=== PATIENT | male | born 1975 | race Two or more races ===

== ENCOUNTER 2023-06-02 10:18 | Outpatient (REF) | payer MEDICAID, SELFPAY ==
[2023-06-02 11:16] LABS: MANUAL DIFF FLAG NO
[2023-06-02 11:27] LABS: Basophils Absolute Auto 0.1 X10*3/uL (0.0-0.2); Basophils Percent Auto 0.9 % (0-2); Eosinophils Absolute Auto 0.1 X10*3/uL (0.0-0.4); Eosinophils Percent Auto 1.4 % (0-4); Hematocrit 42.2 % (42.0-52.0); Hemoglobin 14.5 g/dl (14.0-18.0); Imm Gran Abs Auto 0.03 X10*3/uL (0.00-0.03); Imm Gran Pct Auto 0.4 % (0.0-0.4); Lymphocytes Absolute Auto 2.8 X10*3/uL (1.2-4.9); Lymphocytes Percent Auto 35.2 % (20-40); Mean Corpuscular HGB Conc 34.4 g/dl (31.0-36.0); Mean Corpuscular Hemoglobin 30.2 pg (27.0-33.0); Mean Corpuscular Volume 87.9 fL (80.0-98.0); Mean Platelet Volume 9.8 fL (9.4-12.4); Monocytes Absolute Auto 0.7 X10*3/uL (0.1-1.2); Monocytes Percent Auto 8.3 % (2-11); Neutrophils Absolute Auto 4.3 x10*3/uL (2.0-8.3); Neutrophils Percent Auto 53.8 % (45-73); Platelet Count 396 X10*3/uL (160-400); Red Cell Distribution Width 11.9 % (11.0-16.0); White Blood Count 8.1 X10*3/uL (4.8-10.8)
[2023-06-02 12:16] LABS: Alanine Aminotransferase 33 U/L (0-40); Albumin Level 4.5 g/dL (3.5-5.0); Alkaline Phosphatase 77 U/L (39-117); Anion Gap 13 (12-20); Aspartate Amino Transferase 19 U/L (5-37); Bilirubin Direct 0.3 mg/dL (0.0-0.5); Bilirubin Total 0.8 mg/dL (0.0-1.0); Blood Urea Nitrogen 18 mg/dL (9-16); Calcium 9.3 mg/dL (8.4-10.2); Carbon Dioxide 25 mmol/L (22-29); Chloride 99 mmol/L (96-108); Cholesterol 241 mg/dL (<200); Creatinine Urine 88.78 mg/dL; Estimated Glomerular Filt Rate > 60; Glucose Random 344 mg/dL (60-115); HDL Cholesterol 46 mg/dL (>40); LDL Cholesterol Calculated 166 mg/dL (<100); Potassium 3.9 mmol/L (3.3-5.1); Sodium 133 mmol/L (135-145); Triglycerides 147 mg/dL (<150)
== END 2023-06-02 10:19 | disposition home or self-care (01) ==
LOC: HO.HHCL 10:18
PROVIDERS: Visit Provider Family Medicine
DX: E11.65 Type 2 diabetes mellitus with hyperglycemia (principal)
CPT/HCPCS: 36415; 80048; 80061; 80076; 82043; 82570; 85025

== ENCOUNTER 2023-07-12 09:37 | Outpatient (REF) | payer MEDICAID, SELFPAY ==
[2023-07-12 14:23] LABS: Estimated Average Glucose 214 mg/dL; Hemoglobin A1c % 9.1 % (<6.0)
[2023-07-12 14:59] LABS: Anion Gap 13 (12-20); Blood Urea Nitrogen 17 mg/dL (9-16); Calcium 9.6 mg/dL (8.4-10.2); Carbon Dioxide 27 mmol/L (22-29); Chloride 103 mmol/L (96-108); Estimated Glomerular Filt Rate > 60; Glucose Random 200 mg/dL (60-115); Sodium 139 mmol/L (135-145)
[2023-07-12 15:05] LABS: PSA,Total (Free>4and<10) 1.52 ng/mL (0.00-4.00)
== END 2023-07-12 09:38 | disposition home or self-care (01) ==
LOC: HO.CHCLDS 09:37
PROVIDERS: Visit Provider Student in an Organized Health Care Education/Training Program
DX: Z12.5 Encounter for screening for malignant neoplasm of prostate (principal); E11.65 Type 2 diabetes mellitus with hyperglycemia
CPT/HCPCS: 36415; 80048; 83036; 84153

== ENCOUNTER 2023-09-02 15:28 | Outpatient (AMB) | payer MEDICAID, SELFPAY ==
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
[2023-09-02 15:38] VITALS: BP 128/76; PULSE 93
== END 2023-09-02 16:14 | disposition home or self-care (01) ==
PROVIDERS: PCP Student in an Organized Health Care Education/Training Program; Visit Provider Nurse Practitioner Family
DX: Z12.11 Encounter for screening for malignant neoplasm of colon (principal); K59.01 Slow transit constipation; Z01.818 Encounter for other preprocedural examination
CPT/HCPCS: 99203

== ENCOUNTER → 2023-09-02 15:28 | Outpatient (BNVA) | payer MEDICAID, SELFPAY | PROVIDERS: PCP Student in an Organized Health Care Education/Training Program; Visit Provider Nurse Practitioner Family | DX: Z01.818 Encounter for other preprocedural examination (principal); K59.01 Slow transit constipation | CPT/HCPCS: 99212 ==

== ENCOUNTER → 2024-03-06 05:46 | Day surgery (SDC) | payer MEDICAID, SELFPAY ==
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
--- NOTE | 2024-03-06 07:51 | PC.NURSE ---
pt reports taking his trulicity on 03/01. anesthesia reported that he needed to be canceled. pt instructed to contact md office to reschedule and educated regarding medications.
== END ==
LOC: HO.SSS 05:46
PROVIDERS: PCP Student in an Organized Health Care Education/Training Program; Visit Provider Internal Medicine Gastroenterology
DX: Z12.11 Encounter for screening for malignant neoplasm of colon (principal); Z53.09 Procedure and treatment not carried out because of other contraindication

== ENCOUNTER → 2024-07-04 08:55 | Outpatient (BNVA) | payer SELFPAY | PROVIDERS: PCP Student in an Organized Health Care Education/Training Program; Visit Provider Physician Assistant | DX: Z13.1 Encounter for screening for diabetes mellitus (principal); Z02.79 Encounter for issue of other medical certificate | CPT/HCPCS: 82947 ==

== ENCOUNTER 2024-07-05 08:53 | Outpatient (REF) | payer MEDICAID, SELFPAY ==
--- OUTSIDE RECORDS SUMMARY | 2024-07-05 09:42 | XMS_ITS | Encounter Summary ---
Author Organization [facility] Address [address] [facility] [address] [place] [address] Care Team Providers Care Carbide Grinder Name Role Phone Marion Kim MD Primary Care Provider [phone] Reason for Visit * Reason Comments Med Refill Encounter Details Date Type Department Care Team ([facility] st Contact Info) Description 06/06/2024 Refill [facility] [address] [place], [place] [phone] Marion Kim MD [address] [place] [address] Hyperlipidemia, unspecified hyperlipidemia type Social History Tobacco Use Types Packs/Day Years Used Date Smoking Tobacco: Never Passive Smoke Exposure: Never Smokeless Tobacco: Never Alcohol Use Standard Drinks/Week Comments Yes 0 (1 standard drink = 0.6 oz pur e alcohol) Depression Answer Date Recorded Patient Health Questionnaire-9 Score 0 07/11/2023 Patient Health Questionnaire-9 Score 0 07/11/2023 Last PHQ-9: Questionnaire Data Not on file 0 07/11/2023 Housing Stability Answer Date Recorded What is your housing situation today? I have jagruti gonzalez 06/30/[address] you li ve. Do you have problems with any of the following? None of the above 06/30/2023 Food Insecurity Answer Date Recorded Within the past 12 months, y ou worried that your food would run out before you got money to buy more: Sometimes True 2023 Within the past 12 months,th e food you bought just didn't last and you didn't have enough money to get more: Sometimes True 06/30/2023 Transportation Answer Date Recorded In the past 12 months, has l ack of transportation kept you from medical appts, meetings, work or from getting things needed for daily living? No 06/30/2023 Utilities Answer Date Recorded In the past 12 months, has t he electric, gas, oil or water company threatened to shut off services in your home? No 06/30/2023 Depression Answer Date Recorded Patient Health Questionnaire-2 Score 0 07/11/2023 Sex and Gender Information Value Date Recorded Sex Assigned at Male 06/02/2023 9:30 AM EST Legal Sex Male 12:07 PM EDT Gender Identity Male 06/02/2023 9:30 AM EST Sexual Orientation Straight 06/02/2023 9: 30 AM EST documented as of this encounter Plan of Treatment Upcoming Encounters Date Type Department Care Team (Late st Contact Info) Description 08/06/2024 8:30 AM EDT Office Visit [facility] [address] [place] [address] Marion Kim MD [address] [place] [address] documented as of this encounter Visit Diagnoses Diagnosis Hyperlipidemia, unspecified hyperlipidemia type documented in this encounter Additional Health Concerns Assessment Noted Time PHQ-9 Depression Total Score: 0 07/11/19 9:41 AM EDT documented as of this encounter Care Teams Carbide Grinder Relationship Specialty Start Date End Date Marion Kim MD [address] [place] [id number] PCP - General Family Medicine 07/11/23 documented as of this encounter
--- OUTSIDE RECORDS SUMMARY | 2024-07-05 09:42 | XMS_ITS | Encounter Summary ---
Author Organization [employer] [facility] Address [address] [place] [address] [address] [address] Care Team Providers Care Wind Tunnel Technician Name Role Phone Marion Kim MD Primary Care Provider [phone] Reason for Referral * Consultation (Routine) - Pending Review Specialty Diagnoses / Procedures Referred By Nena modi Referred To Contact Urology Diagnoses Erectile dysfunction, unspecified erectile dysfunction type Marion Kim MD [address] [place] [address] Phone: tel: fax: Referral ID Status Reason Start Date Expiration Date Visits Requested Visits Authorized [id number] Pending Review Specialty Services Required 07/04/2024 07/04/2025 1 1 * Consultation (Urgent) - Authorized Specialty Diagnoses / Procedures Referred By Nena modi Referred To Contact Pharmacy Diagnoses Uncontrolled type 2 diabetes mellitus with hyperglycemia, without long-term current use of insulin ([facility]) Marion Kim MD [address] [place] [address] Phone: tel: fax: Referral ID Status Reason Start Date Expiration Date Visits Requested Visits Authorized [id number] Authorized Consult and Treat 07/04/2024 07/04/2025 6 6 Encounter Details Date Type Department Care Team (Latest Contact Info) Description 07/04/2024 3:00 PM EST Office Visit [facility] MED & PEDS [address] [place] [address] Marion Kim MD [address] [place] [address] Uncontrolled type 2 diabetes mellitus with hyperglycemia, without long-term current use of insulin ([facility]/HCC) (Primary Dx); Erectile dysfunction, unspecified erectile dysfunction type; Hyperlipidemia, unspecified hyperlipidemia type Social History Tobacco [...] AM EST documented as of this encounter Last Filed Vital Signs Vital Sign Reading Time Taken Comments Blood Pressure 126/76 07/04/2024 3:26 PM EST Pulse 77 07/04/2024 3:26 PM EST Temperature 36.7 ??C (98 ??F) 07/04/2024 3:26 PM EST Respiratory Rate 20 07/04/2024 3:26 PM EST Oxygen Saturation 99% 07/04/2024 3:26 PM EST Inhaled Oxygen Concentration - - Weight 105 kg (230 lb 12.8 oz) 07/04/2024 3:26 P M EST Height 188 cm (6' 2 ) 07/04/2024 3:26 PM EST Body Mass Index 29.63 07/04/2024 3:26 PM EST documented in this encounter Progress Notes * Marion Kim MD - 07/04/2024 3:00 PM EST Subjective Patient ID: Dc Pappas is a 49 y.o. male who presents for No chief complaint on file.. Diabetes He presents for his follow-up diabetic visit. He has type 2 diabetes mellitus. His disease course has been stable. There are no hypoglycemic associated symptoms. There are no diabetic associated symptoms. There are no hypoglycemic complications. Symptoms are worsening. There are no diabetic complications. Risk factors for coronary artery disease include family history. Current diabetic treatment includes oral agent (dual therapy) and insulin injections. Review of Systems Constitutional: Negative. Respiratory: Negative. Cardiovascular: Negative. Gastrointestinal: Negative. Genitourinary: Negative. Objective Physical Exam Constitutional: Appearance: Normal appearance. Cardiovascular: Rate and Rhythm: Normal rate and regular rhythm. Pulmonary: Effort: Pulmonary effort is normal. Breath sounds: Normal breath sounds. Neurological: General: No focal deficit present. Mental Status: He is alert. Psychiatric: Mood and Affect: Mood normal. Behavior: Behavior normal. Assessment/Plan Diagnoses and all orders for this visit: Uncontrolled type 2 diabetes mellitus with hyperglycemia, without long-term current use of insulin ([facility]) Comments: Trulicity increased to 1.5mg Advised Low sugar and Low carb diet. Counseled regarding self-monitoring of blood glucose. Counseled re: potential co-morbidities including cardiovascular disease. Counseled re: potential co-morbidities include neuropathy and retinopathy. Counseled re: potential co-morbidities include nephropathy. Orders: - POCT Glucose - POCT HGB A1C - Referral to Pharmacy CDTM - Albumin, Random Urine W/Creatinine; Future - Basic Metabolic Panel; Future - Lipid Panel, Standard; Future - Hepatic Function Panel; Future - Hemoglobin A1c; Future Erectile dysfunction, unspecified erectile dysfunction type Comments: Referred to Urologist Strongly advised Strict blood sugar control Orders: - Referral to Urology; Future Hyperlipidemia, unspecified hyperlipidemia type Advised to maintain a low-fat, low-cholesterol diet. Counseled regarding importance of weight loss. - atorvastatin (Lipitor) 10 MG tablet; Take 1 tablet (10 mg) by mouth at bedtime. - Basic Metabolic Panel; Future - Lipid Panel, Standard; Future Other orders - Dulaglutide (Trulicity) 1.5 MG/0.5ML solution auto-injector; Inject 1.5 mg under the skin 1 (one)time per week. - aspirin 81 MG EC tablet; Take 1 tablet (81 mg) by mouth Once per day. documented in this encounter Plan of Treatment Upcoming Encounters Date Type Department Care Team (Late st Contact Info) Description 08/06/2024 8:30 AM EDT Office Visit [facility] MED & PEDS [address] [place] [address] Marion Kim MD [address] [place] [address] Scheduled Orders Name Type Priority Associated Diagnoses Orde r Schedule Albumin, Random Urine W/Creatinine Lab Routine Uncontrolled type 2 diabetes mellitus with hyperglycemia, without long-term current use of insulin ([facility]) Expected: 07/04/2024 (Approximate), Expires: 07/04/2025 Basic Metabolic Panel Lab Routine Uncontrolled type 2 diabetes mellitus with hyperglycemia, without long-term current use of insulin ([facility]) Hyperlipidemia, unspecified hyperlipidemia type Expected: 07/04/2024 (Approximate), Expires: 07/04/2025 Lipid Panel, Standard Lab Routine Uncontrolled type 2 diabetes mellitus with hyperglycemia, without long-term current use of insulin (CMS/HCC) Hyperlipidemia, unspecified hyperlipidemia type Expected: 07/04/2024 (Approximate), Expires: 07/04/2025 Hepatic Function Panel Lab Routine Uncontrolled type 2 diabetes mellitus with hyperglycemia, without long-term current use of insulin (CMS/HCC) Expected: 07/04/2024 (Approximate), Expires: 07/04/2025 Hemoglobin A1c Lab Routine Uncontrolled type 2 diabetes mellitus with hyperglycemia, without long-term current use of insulin ([facility]) Expected: 07/04/2024 (Approximate), Expires: 07/04/2025 Scheduled Referrals Name Type Priority Associated Diagnoses Orde r Schedule Referral to Pharmacy CDTM Outpatient Referral Urgent Uncontrolled type 2 diabetes mellitus with hyperglycemia, without long-term current use of insulin ([facility]) Ordered: 07/04/2024 Referral to Urology Outpatient Referral Routine Erectile dysfunction, unspecified erectile dysfunction type Expected: 07/04/2024 (Approximate), Expires: 07/04/2025 documented as of this encounter Procedures Procedure Name Priority Date/Time Associated Diagnosis Comments POCT GLYCATED HEMOGLOBIN, TOTAL Routine 07/04/2024 3:37 PM EST Uncontrolled type 2 diabetes mellitus with hyperglycemia, without long-term current use of insulin ([facility]) POCT GLUCOSE Routine 07/04/2024 3:37 PM EST Uncontrolled type 2 diabetes mellitus with hyperglycemia, without long-term current use of insulin ([facility]) documented in this encounter Results * (ABNORMAL) POCT HGB A1C (07/04/2024 3:37 PM EST) Hemoglobin A1C 12.4(A) 4.0 - 6.0 % QC Media Lot # [id number] Lot# Expiration Date , Blood 07/04/2024 3:37 PM EST Result [facility] Marion Kim MD POINT OF CARE TEST ENTER/EDIT OR DERABLES Final Result * (ABNORMAL) POCT Glucose (07/04/2024 3:37 PM EST) Glucose Blood, POC 247(A) 60 - 200 mg/dL QC Media Lot # [id number] Lot# Expiration Date ,025 Blood Capillary blood specimen / Unknown 07/04/2024 3:37 PM EST Result Juliana Kim MD POINT OF CARE TEST ENTER/EDIT OR DERABLES Final Result documented in this encounter Visit Diagnoses Diagnosis Uncontrolled type 2 diabetes mellitus with hyperglycemia, without long-term current use of insulin ([facility])- Primary Erectile dysfunction, unspecified erectile dysfunction type Hyperlipidemia, unspecified hyperlipidemia type documented in this encounter Additional Health Concerns Assessment Noted Time PHQ-9 Depression Total Score: 0 07/11/19 24 9:41 AM EDT documented as of this encounter Care Teams Wind Tunnel Technician Relationship Specialty Start Date End Date Marion Kim MD [address] [place] [phone] PCP - General Family Medicine 07/11/23 documented as of this encounter
--- OUTSIDE RECORDS SUMMARY | 2024-07-05 09:42 | XMS_ITS | Encounter Summary ---
Author Organization [employer] Address [address] [facility] [address] [place] [address] Care Team Providers Care Executive Chef Assistant Name Role Phone Marion Kim MD Primary Care Provider [phone] Encounter Details Date Type Department Care Team ([facility] st Contact Info) Description 07/04/2024 Telephone [facility] CH[facility] MED & PEDS [address] [place], [place] [phone] Marion Kim MD [address] [place] [address] Social History Tobacco Use Types Packs/Day Years [...] AM EST documented as of this encounter Miscellaneous Notes * Telephone Encounter - Yessi Gruber - 07/04/2024 10:07 AM EST ERROR documented in this encounter Plan of Treatment Upcoming Encounters Date Type Department Care Team (Late st Contact Info) Description 08/06/2024 8:30 AM EDT Office Visit [facility] MED & PEDS [address] [place] [address] Marion Kim MD [address] [place] [address] documented as of this encounter Visit Diagnoses Not on filedocumented in this encounter Additional Health Concerns Assessment Noted Time PHQ-9 Depression Total Score: 0 07/11/19 24 9:41 AM EDT documented as of this encounter Care Teams Executive Chef Assistant Relationship Specialty Start Date End Date Marion Kim MD [address] [place] [phone] PCP - General Family Medicine 07/11/23 documented as of this encounter
--- OUTSIDE RECORDS SUMMARY | 2024-07-05 09:42 | XMS_ITS | Clinical Summary ---
Author Organization [employer] Address [address] [facility] [address] [place] [address] Care Team Providers Care Quality Assurance Inspector Name Role Phone Marion Kim MD Primary Care Provider [phone] Allergies Active Allergy Reactions Criticality Noted Date Comments Sulfa Antibiotics 06/02/2023 Medications Alcohol Swabs (Alcohol Pads) 70 % pads Use as directed on skin 100 each 11 06/02/19 24 Active FreeStyle lancets 1 each by Other route 2 times daily. Use bid, dx type 2 diabetes 60 each 11 06/02/19 24 Active glucose blood (FREESTYLE LITE) test strip Use bid. Dx diabetes 60 each 11 06/02/19 24 Active Lancets misc Use to test blood sugar q2 times daily 100 each 06/17/19 24 Active Alcohol Swabs 70 % pads Use to test blood sugar 2 times daily 100 each 06/17/19 24 Active Blood Glucose Monitoring Suppl (FreeStyle Astatula Lite) w/Device kit USE TO TEST BLOOD SUGAR TWICE DAILY 1 kit 08/15/19 24 Active Continuous Glucose [employer] Assistant (FreeStyle Britt 2 [place]) device Scan sensor every 8 hours 1 each 09/07/19 24 Active Continuous Glucose Sensor (FreeStyle Britt 2 Sensor) misc Apply 1 sensor every 14 days 2 each 3 09/07/19 24 Active dulaglutide (Trulicity) 0.75 MG/0.5ML solution pen-injector Inject 0.75 mg under the skin 1 (one) time per week. 4 each 11/10/19 24 Active glipiZIDE (Glucotrol) 10 MG tabletIndications :Uncontrolled type 2 diabetes mellitus with hyperglycemia, without long-term current use of insulin ([facility]) TAKE 1 TABLET BY MOUTH EVERY MORNING 90 tablet 1 02/16/20 24 Active metFORMIN (Glucophage) 1000 MG tabletIndications :Uncontrolled type 2 diabetes mellitus with hyperglycemia, without long-term current use of insulin (CMS/HCC) TAKE 1 TABLET BY MOUTH TWICE DAILY 180 tablet 1 02/16/20 24 Active Dulaglutide (Trulicity) 1.5 MG/0.5ML solution auto-injector Inject 1.5 mg under the skin 1 (one) time per week. 2 mL 2 07/05/19 25 025 Active aspirin 81 MG EC tablet Take 1 tablet (81 mg) by mouth Once per day. 30 tablet 11 07/05/19 25 026 Active atorvastatin (Lipitor) 10 MG tabletIndications :Hyperlipidemia, unspecified hyperlipidemia type Take 1 tablet (10 mg) by mouth at bedtime. 90 tablet 07/05/19 25 Active FREESTYLE LITE test strip Use to test blood sugar 2 times daily 100 each 12 06/17/19 24 025 aspirin 81 MG EC tablet Take 1 tablet (81 mg) by mouth in the morning. 30 tablet 11 06/17/19 24 025 atorvastatin (Lipitor) 10 MG tabletIndications :Hyperlipidemia, unspecified hyperlipidemia type TAKE ONE TABLET AT BEDTIME 90 tablet 02/08/20 24 025 Discontinued atorvastatin (Lipitor) 10 MG tabletIndications :Hyperlipidemia, unspecified hyperlipidemia type TAKE ONE TABLET AT BEDTIME 90 tablet 06/12/19 25 025 Discontinued(R eorder (will not trigger notification to Pharmacy)) insulin glargine (Lantus) 100 UNIT/ML injection Inject 10 Units under the skin at bedtime. 10 mL 3 07/05/19 25 025 Discontinued Active Problems Problem Noted Date Diagnosed Date Hyperlipidemia 06/03/2023 Uncontrolled type 2 diabetes mellitus with hyperglycemia, without long-term current use of insulin 06/03/2023 Encounters Date Type Department Care Team Description 07/04/2024 3:00 PM EST Office Visit [facility] MED & PEDS [address] [place] [address] Marion Kim MD Uncontrolled type 2 diabetes mellitus with hyperglycemia, without long-term current use of insulin (CMS/HCC) (Primary Dx); Erectile dysfunction, unspecified erectile dysfunction type; Hyperlipidemia, unspecified hyperlipidemia type 07/04/2024 Travel 07/04/2024 Telephone [facility] MED & PEDS [address] [place] [address] Marion Kim MD 06/06/2024 Refill [facility] MED & PEDS [address] [place] [address] Marion Kim MD Hyperlipidemia, unspecified hyperlipidemia type from Last 3 Months Immunizations Name Administration Dates Next Due Tdap 09/07/2023 Social History Tobacco Use Types Packs/Day Years Used Date Smoking Tobacco: Never Passive Smoke Exposure: Never Smokeless Tobacco: Never Tobacco Cessation:Counseling Given: Not Answered Alcohol Use Standard Drinks/Week Comments Yes 0 [...] Orientation Straight 06/02/2023 9: 30 AM EST Last Filed Vital Signs Vital Sign Reading [...] Mass Index 29.63 07/04/2024 3:26 PM EST Plan of Treatment Upcoming Encounters Date Type Department Care Team (Late st Contact Info) Description 08/06/2024 8:30 AM EDT Office Visit [facility] MED & PEDS [address] [place] [address] Marion Kim MD [address] [place] [address] Health Maintenance Due Date Last Done Comments CT Colonography 1973 Colonoscopy 1973 Colorectal Cancer Screening 1973 FIT DNA/Cologuard 1973 FIT 1973 FOBT 1973 HIV Screening 1973 Sigmoidoscopy 1973 Alcohol/Substance Use Screening 1985 Family Planning (PISQ) 01/15/1988 Hepatitis C Screening 1991 Hepatitis B Vaccines (1 of 3 - 19+ 3-dose series) 01/15/1992 Pneumococcal Vaccine: 50+ Years (1 of 2 - PCV) 01/15/1992 Zoster Vaccines (1 of 2) 2023 COVID-19 Vaccine ( - 2023- season) 2024 Influenza Vaccine (#1) 2024 Diabetes: Urine Protein Screening 06/02/2024 06/02/2023 Lipid Panel 06/02/2024 06/02/2023 SDOH Screening 06/29/2024 06/30/2023 Depression Screening 07/10/2024 07/11/2023, 07/11/19 24 Diabetes: Foot Exam 09/06/2024 09/07/2023, 09/07/2023, 09/07/2023, Additional history exists Diabetes: Hemoglobin A1C 10/04/2024 025, 09/07/2023, 07/12/2023, Additional history exists Tobacco Screening 11/09/2024 11/10/2023 Eye Exam 08/29/2025 08/30/2023, 08/02, 08/30/2023, Additional history exists DTaP/Tdap/Td Vaccines (2 - Td or Tdap) 09/06/2033 09/07/2023 RSV Patients and Patients Aged 60 years or older (1 - 1-dose 75+ series) 01/15/2048 HIB Vaccines Aged Out No longer eligi ble based on patient's age to complete this topic HPV Vaccines Aged Out No longer eligi ble based on patient's age to complete this topic Hepatitis A Vaccines Aged Out No long er eligible based on patient's age to complete this topic IPV Vaccines Aged Out No longer eligi ble based on patient's age to complete this topic Meningococcal Vaccine Aged Out No cristhian uriah eligible based on patient's age to complete this topic RSV under 20 months Aged Out No longe r eligible based on patient's age to complete this topic Rotavirus Vaccines Aged Out No longer eligible based on patient's age to complete this topic Procedures Procedure Name Priority Date/Time Associated Diagnosis Comments POCT GLYCATED HEMOGLOBIN, TOTAL Routine 07/04/2024 3:37 PM EST Uncontrolled type 2 diabetes mellitus with hyperglycemia, without long-term current use of insulin (CMS/[facility]) POCT GLUCOSE Routine 07/04/2024 3:37 PM EST Uncontrolled type 2 diabetes mellitus with hyperglycemia, without long-term current use of insulin (CMS/[facility]) ALBUMIN, RANDOM URINE W/CREATININE Routine 06/02/2023 10:23 AM EST Uncontrolled type 2 diabetes mellitus with hyperglycemia, without long-term current use of insulin (CMS/[facility]) LIPID PANEL, STANDARD Routine 06/02/2023 10:23 AM EST Uncontrolled type 2 diabetes mellitus with hyperglycemia, without long-term current use of insulin ([facility]) from Last 3 Months or Most Recently Relevant to Health Maintenance Results * (ABNORMAL) POCT HGB A1C (07/04/2024 3:37 PM EST) Hemoglobin A1C 12.4(A) 4.0 - 6.0 % QC Media Lot # [id number] Lot# Expiration Date Blood 07/04/2024 3:37 PM EST Marion Kim MD POINT OF CARE TEST ENTER/EDIT OR DERABLES Final Result * (ABNORMAL) POCT Glucose (07/04/2024 3:37 PM EST) Glucose Blood, POC 247(A) 60 - 200 mg/dL QC Media Lot # [id number] Lot# Expiration Date ,025 Blood Capillary blood specimen / Unknown 07/04/2024 3:37 PM EST Marion Kim MD POINT OF CARE TEST ENTER/EDIT OR DERABLES Final Result * Albumin, Random Urine W/Creatinine (06/02/2023 10:23 AM EST) Creatinine, Urine 88.78 mg/dL [facility] Microalbumin Urine 16.0 mg/L [facility] Microalbum Creatinine Ratio Ur 18.0 <30 ug/mg cr [facility] Comment:Albumin/Creatinine R atio Reference Ranges: Normal: < 30 ug/mg creatinine Microalbuminuria: 30 - 300 ug/mg creatinineClinical Albuminuria: > 300 ug/mg creatinine Urine (Urine, Random) 06/02/2023 10:23 AM EST 06/02/2023 11:11 AM EST Ok Arroyo MD LAB URINE ORDERABLES Final Resul t [facility] [address] [place] [phone] * (ABNORMAL) Lipid Panel, Standard (06/02/2023 10:23 AM EST) Triglycerides 147 <150 mg/dL [facility] Comment:Desirable Triglyceri de: less than 150 mg/dLBorderline High Triglyceride 150-199 mg/dLHigh Triglyceride: 200-499 mg/dLVery High Triglyceride: greater than or equal to 5OO mg/dL Cholesterol 241(H) <200 mg/dL [facility] Comment:Desirable Cholestero l: less than 200 mg/dLBorderline High Cholesterol: 200-239 mg/dLHigh Cholesterol: greater than 239 mg/dL LDL Cholesterol Calculated 166(H) <100 mg/dL [facility] Comment:Desirable LDL: less than 100 mg/dLNear Optimal/Above Optimal LDL: 110- 129 mg/dLBorderline High LDL: 130-159 mg/dLHigh LDL: 160-189 mg/dLVery High LDL: greater than or equal to 190 mg/dL HDL Cholesterol 46 >40 mg/dL [facility] Comment:Desirable HDL: great er than 40 mg/dL Note: This HDL assay may give artificially low results in patients with liver disease. Blood Venous blood specimen / Unknown 06/02/2023 10:23 AM EST 06/02/2023 11:14 AM EST us Ok Arroyo MD LAB BLOOD ORDERABLES Final Resul t [facility] [address] [place] [phone] from Last 3 Months or Most Recently Relevant to Health Maintenance Insurance C3 Care Teams Quality Assurance Inspector Relationship Specialty Start Date End Date Marion Kim MD [address] [place] [phone] PCP - General Family Medicine 07/11/23
--- OUTSIDE RECORDS SUMMARY | 2024-07-05 09:42 | XMS_ITS | Encounter Summary ---
Author Organization [employer] Address [address] [facility] [address] [place] [address] Care Team Providers Care Printer Small Print Shop Name Role Phone Marion Kim MD Primary Care Provider Encounter Details Date Type Department Care Team (Latest Contact Info) Description 07/04/2024 Travel Social History Tobacco Use Types Packs/Day Years [...] Description 08/06/2024 8:30 AM EDT Office Visit [facility] MED & PEDS [address] [place] [address] Marion Kim MD [address] [place] [address] documented as of this encounter Visit Diagnoses Not on filedocumented in this encounter Additional Health Concerns Assessment Noted Time PHQ-9 Depression Total Score: 0 07/11/19 9:41 AM EDT documented as of this encounter Care Teams Printer Small Print Shop Relationship Specialty Start Date End Date Marino Kim MD [address] [place] [phone] PCP - General Family Medicine 07/11/23 documented as of this encounter
[2024-07-05 14:41] LABS: Alanine Aminotransferase 23 U/L (0-40); Albumin Level 4.2 g/dL (3.5-5.0); Alkaline Phosphatase 55 U/L (39-117); Anion Gap 13 (12-20); Aspartate Amino Transferase 23 U/L (5-37); Bilirubin Direct 0.3 mg/dL (0.0-0.5); Bilirubin Total 1.1 mg/dL (0.0-1.0); Blood Urea Nitrogen 21 mg/dL (9-16); Calcium 9.1 mg/dL (8.4-10.2); Carbon Dioxide 24 mmol/L (22-29); Chloride 104 mmol/L (96-108); Cholesterol 201 mg/dL (<200); Estimated Glomerular Filt Rate > 60; Glucose Random 266 mg/dL (60-115); HDL Cholesterol 36 mg/dL (>40); LDL Cholesterol Calculated 118 mg/dL (<100); Potassium 4.1 mmol/L (3.3-5.1); Sodium 137 mmol/L (135-145); Total Protein 7.5 g/dL (6.5-8.0); Triglycerides 239 mg/dL (<150)
[2024-07-05 15:28] LABS: Estimated Average Glucose 301 mg/dL; Hemoglobin A1c % 12.1 % (<6.0)
== END 2024-07-05 08:54 | disposition home or self-care (01) ==
LOC: HO.CHCLDS 08:53
PROVIDERS: Visit Provider Student in an Organized Health Care Education/Training Program
DX: E11.65 Type 2 diabetes mellitus with hyperglycemia (principal); E78.5 Hyperlipidemia, unspecified
CPT/HCPCS: 36415; 80048; 80061; 80076; 83036

== ENCOUNTER 2024-08-12 17:24 | Emergency (ER) | payer MEDICAID, SELFPAY ==
--- NOTE | ~2024-08-12 | CT_ITS ---
CLINICAL HISTORY: l flank pain stone CT abdomen and pelvis without contrast Comparison: None Findings: The lung bases are clear. The gallbladder and solid organs are within normal limits. There are bilateral renal parenchymal calculi. There is moderate left hydroureteronephrosis secondary to a distal ureteral 4.8 mm calculus. No bowel obstruction, pneumoperitoneum, or pneumatosis. Pelvic contents unremarkable. Normal appendix. The bones are intact. IMPRESSION: Moderate left hydroureteronephrosis secondary to a distal ureteral 4.8 mm calculus. This document has been electronically signed by: Elmer Liu MD on 08/12/2024 22:31:53
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
[2024-08-12 17:57] VITALS: BP 109/68; PULSE 79; RESP 19; TEMP 36.6; O2SAT 80; BMI 30.2
[2024-08-12 19:06] LABS: MANUAL DIFF FLAG NO
[2024-08-12 19:11] LABS: Appearance Urine Clear; Color Urine Yellow; Glucose Urine UA >=1000 mg/dL (Negative); Leukocyte Esterase Urine Negative (Negative); Nitrite Urine Negative (Negative); Specific Gravity - Urine >= 1.030 (1.005-1.025); UMIC TRIGGER UACC YES; Urine Blood Small (1+) (Negative); Urine Ketones 15 mg/dL (Negative); Urine Protein Negative (Neg-Trace)
[2024-08-12 19:19] LABS: Basophils Absolute Auto 0.1 X10*3/uL (0.0-0.2); Basophils Percent Auto 0.6 % (0-2); Eosinophils Percent Auto 0.1 % (0-4); Hematocrit 43.5 % (42.0-52.0); Hemoglobin 14.9 g/dl (14.0-18.0); Imm Gran Abs Auto 0.06 X10*3/uL (0.00-0.03); Imm Gran Pct Auto 0.4 % (0.0-0.4); Lymphocytes Absolute Auto 1.1 X10*3/uL (1.2-4.9); Lymphocytes Percent Auto 7.6 % (20-40); Mean Corpuscular HGB Conc 34.3 g/dl (31.0-36.0); Mean Corpuscular Volume 87.7 fL (80.0-98.0); Mean Platelet Volume 9.4 fL (9.4-12.4); Monocytes Absolute Auto 0.8 X10*3/uL (0.1-1.2); Monocytes Percent Auto 5.1 % (2-11); Neutrophils Absolute Auto 12.7 x10*3/uL (2.0-8.3); Neutrophils Percent Auto 86.2 % (45-73); Platelet Count 373 X10*3/uL (160-400); Red Blood Count 4.96 X10*6/uL (4.60-5.80); Red Cell Distribution Width 11.9 % (11.0-16.0); White Blood Count 14.8 X10*3/uL (4.8-10.8)
[2024-08-12 19:21] LABS: Alanine Aminotransferase 17 U/L (0-40); Albumin Level 4.6 g/dL (3.5-5.0); Alkaline Phosphatase 63 U/L (39-117); Anion Gap 15 (12-20); Aspartate Amino Transferase 23 U/L (5-37); Bilirubin Total 1.3 mg/dL (0.0-1.0); Blood Urea Nitrogen 22 mg/dL (9-16); Calcium 9.2 mg/dL (8.4-10.2); Carbon Dioxide 22 mmol/L (22-29); Chloride 106 mmol/L (96-108); Creatinine Clr Calc Pharmacy 103.3; Estimated Glomerular Filt Rate > 60; Glucose Random 188 mg/dL (60-115); Potassium 5.6 mmol/L (3.3-5.1); Sodium 137 mmol/L (135-145); Total Protein 7.8 g/dL (6.5-8.0)
[2024-08-12 19:22] LABS: Bacteria Urine None Seen (None Seen); Hyaline Casts Urine 0-2 /LPF (0-2); Squamous Epithelial Cell Urine 0-2 /HPF (0-2); WBC Urine 0-5 /HPF (0-5)
[2024-08-12 20:03] VITALS: BP 110/77; PULSE 83; RESP 16; TEMP 36.6; O2SAT 100
--- OUTSIDE RECORDS SUMMARY | 2024-08-12 20:21 | XMS_ITS | Clinical Summary ---
Author Organization [employer] Address [address] [facility] [address] [place] [address] Care Team Providers Care Contract Administrator Name Role Phone Marion Kim MD Primary Care Provider [phone] Allergies Active Allergy Reactions Criticality Noted Date Comments Sulfa Antibiotics 06/02/2023 Medications Alcohol Swabs (Alcohol Pads) 70 % pads Use as directed on skin 100 each 11 024 Active FreeStyle lancets 1 each by Other route 2 times daily. Use bid, dx type 2 diabetes 60 each 11 024 Active glucose blood (FREESTYLE LITE) test strip Use bid. Dx diabetes 60 each 11 024 Active Lancets misc Use to test blood sugar q2 times daily 100 each 024 Active Alcohol Swabs 70 % pads Use to test blood sugar 2 times daily 100 each 024 Active Blood Glucose Monitoring Suppl (FreeStyle [place] Lite) w/Device kit USE TO TEST BLOOD SUGAR TWICE DAILY 1 kit 024 Active Continuous Glucose Knife Sharpener (FreeStyle Britt 2 [place]) device Scan sensor every 8 hours 1 each 024 Active Continuous Glucose Sensor (FreeStyle Britt 2 Sensor) misc Apply 1 sensor every 14 days 2 each 3 024 Active glipiZIDE (Glucotrol) 10 MG tabletIndications :Uncontrolled type 2 diabetes mellitus with hyperglycemia, without long-term current use of insulin (CMS/HCC) TAKE 1 TABLET BY MOUTH EVERY MORNING 90 tablet 1 024 Active metFORMIN (Glucophage) 1000 MG tabletIndications :Uncontrolled type 2 diabetes mellitus with hyperglycemia, without long-term current use of insulin (CMS/HCC) TAKE 1 TABLET BY MOUTH TWICE DAILY 180 tablet 1 Active aspirin 81 MG EC tablet Take 1 tablet (81 mg) by mouth Once per day. 30 tablet 11 2025 Active atorvastatin (Lipitor) 10 MG tabletIndications :Hyperlipidemia, unspecified hyperlipidemia type Take 1 tablet (10 mg) by mouth at bedtime. 90 tablet Active senna (Senokot) 8.6 MG tablet TAKE TWO TABLETS EVERY NIGHT AT BEDTIME NEEDED FOR CONSTIPATION Active empagliflozin (Jardiance) 10 MG Take 1 tablet (10 mg) by mouth Once per day. 30 tablet 11 2025 Active triamcinolone (Kenalog) 0.1 % cream Apply topically if needed in the morning and at bedtime (pain and swelling). 30 g 2 Active Dulaglutide (Trulicity) 1.5 MG/0.5ML solution auto-injector Inject 1.5 mg under the skin 1 (one) time per week. 2 mL 2 025 2024 Active lisinopril 5 MG tablet Take 1 tablet (5 mg) by mouth Once per day. 30 tablet 11 2025 Active dulaglutide (Trulicity) 0.75 MG/0.5ML solution pen-injector Inject 0.75 mg under the skin 1 (one) time per week. 4 each 024 2024 Discontinued Dulaglutide (Trulicity) 1.5 MG/0.5ML solution auto-injector Inject 1.5 mg under the skin 1 (one) time per week. 2 mL 2 2024 Discontinued(R eorder (will not trigger notification to Pharmacy)) Active Problems Problem Noted Date Diagnosed Date Hyperlipidemia 06/03/2023 Uncontrolled type 2 diabetes mellitus with hyperglycemia, without long-term current use of insulin 06/03/2023 Encounters Date Type Department Care Team Description 08/12/2024 Orders Only GENERIC EXTERNAL DATA DEPARTMENT Provider, Generic External Data 08/06/2024 8:30 AM EDT Office Visit [facility] [address] [place] [address] [phone] Marion Kim MD Uncontrolled type 2 diabetes mellitus with hyperglycemia, without long-term current use of insulin (CMS/HCC) (Primary Dx); Hyperlipidemia, unspecified hyperlipidemia type 07/13/2024 Population Health Risk Score [facility] () Department [address] [place] [address] [phone] Provider, Population Health Generic 07/04/2024 3:00 PM EST Office Visit [facility] [address] [facility] [place] [address] Marion Kim MD Uncontrolled type 2 diabetes mellitus with hyperglycemia, without long-term current use of insulin (CMS/HCC) (Primary Dx); Erectile dysfunction, unspecified erectile dysfunction type; Hyperlipidemia, unspecified hyperlipidemia type 07/04/2024 Travel 07/04/2024 Telephone [facility] [address] [facility] [place] [address] Marion Kim MD 06/06/2024 Refill [facility] [address] [facility] [place] [address] Marion Kim MD Hyperlipidemia, unspecified hyperlipidemia type [...] Date Recorded Patient Health Questionnaire-9 Score 0 08/06/2024 Patient Health Questionnaire-9 Score 0 08/06/2024 Last PHQ-9: Questionnaire Data Not on file 0 08/06/2024 Housing Stability Answer Date Recorded What is [...] Date Recorded Patient Health Questionnaire-2 Score 0 08/06/2024 Sex and Gender Information Value Date Recorded Sex Assigned at Male 06/02/2023 9:30 AM EST Legal Sex Male 12:07 PM EDT Gender Identity Male 06/02/2023 9:30 AM EST Sexual Orientation Straight 06/02/2023 9: 30 AM EST Last Filed Vital Signs Vital Sign Reading Time Taken Comments Blood Pressure 136/88 08/06/2024 8:39 AM EDT Pulse 84 08/06/2024 8:39 AM EDT Temperature 36.7 ??C (98 ??F) 08/06/2024 8:39 AM EDT Respiratory Rate 20 08/06/2024 8:39 AM EDT Oxygen Saturation 98% 08/06/2024 8:39 AM EDT Inhaled Oxygen Concentration - - Weight 103 kg (227 lb 3.2 oz) 08/06/2024 8:39 AM EDT Height 188 cm (6' 2 ) 08/06/2024 8:39 AM EDT Body Mass Index 29.17 08/06/2024 8:39 AM EDT Plan of Treatment Upcoming Encounters Date Type Department Care Team (Late st Contact Info) Description 08/21/2024 10:00 AM EDT Medication Management [facility] [address] [place] [address] Emely Reyez, PharmD [address] [place] [address] 09/05/2024 10:00 AM EDT Telemedicine [facility] [address] [place] [address] Marion Kim MD [address] [place] [address] Health Maintenance Due Date Last Done Comments CT Colonography 1973 Colonoscopy 1973 Colorectal Cancer Screening 1973 FIT DNA/Cologuard 1973 FIT 1973 FOBT 1973 HIV Screening 1973 Sigmoidoscopy 1973 Family Planning (PISQ) 01/15/1988 Hepatitis C Screening 1991 Hepatitis B Vaccines (1 of 3 - 19+ 3-dose series) 01/15/1992 Pneumococcal Vaccine: 50+ Years (1 of 2 - PCV) 01/15/1992 Zoster Vaccines (1 of 2) 2023 COVID-19 Vaccine ( season) 2024 Influenza Vaccine (#1) 2024 Diabetes: Urine Protein Screening 06/02/2024 06/02/2023 SDOH Screening 06/29/2024 06/30/2023 Diabetes: Foot Exam 09/06/2024 09/07/2023, 09/07/2023, 09/07/2023, Additional history exists Diabetes: Hemoglobin A1C 11/05/2024 025, 07/05/2024, 07/04/2024, Additional history exists Tobacco Screening 11/09/2024 11/10/2023 Lipid Panel 07/05/2025 07/05/2024, 06/02/2023 Alcohol/Substance Use Screening 08/06/2025 08/06/2024 Depression Screening 08/06/2025 08/06/2024, 08/07/19 25 Eye Exam 08/29/2025 08/30/2023, 08/02, 08/30/2023, Additional [...] Procedure Name Priority Date/Time Associated Diagnosis Comments URINALYSIS, COMPLETE, WITH REFLEX TO CULTURE Routine 08/12/2024 7:03 PM EDT COMPREHENSIVE METABOLIC PANEL Routine 08/12/2024 7:00 PM EDT CBC WITH AUTO DIFFERENTIAL Routine 08/12/2024 7:00 PM EDT POCT GLYCATED HEMOGLOBIN, TOTAL Routine 08/06/2024 9:01 AM EDT Uncontrolled type 2 diabetes mellitus with hyperglycemia, without long-term current use of insulin (CMS/HCC) POCT GLUCOSE Routine 08/06/2024 9:01 AM EDT Uncontrolled type 2 diabetes mellitus with hyperglycemia, without long-term current use of insulin (CMS/HCC) HEMOGLOBIN A1C Routine 07/05/2024 8:55 AM EST Uncontrolled type 2 diabetes mellitus with hyperglycemia, without long-term current use of insulin (CMS/HCC) HEPATIC FUNCTION PANEL Routine 07/05/2024 8:55 AM EST Uncontrolled type 2 diabetes mellitus with hyperglycemia, without long-term current use of insulin (CMS/HCC) LIPID PANEL, STANDARD Routine 07/05/2024 8:55 AM EST Uncontrolled type 2 diabetes mellitus with hyperglycemia, without long-term current use of insulin (CMS/HCC) Hyperlipidemia, unspecified hyperlipidemia type BASIC METABOLIC PANEL Routine 07/05/2024 8:55 AM EST Uncontrolled type 2 diabetes mellitus with hyperglycemia, without long-term current use of insulin (CMS/HCC) Hyperlipidemia, unspecified hyperlipidemia type POCT GLYCATED HEMOGLOBIN, TOTAL Routine 07/04/2024 3:37 PM EST Uncontrolled type 2 diabetes mellitus with hyperglycemia, without long-term current use of insulin ([facility]) POCT GLUCOSE Routine 07/04/2024 3:37 PM EST Uncontrolled type 2 diabetes mellitus with hyperglycemia, without long-term current use of insulin ([facility]) ALBUMIN, RANDOM URINE W/CREATININE Routine 06/02/2023 10:23 AM EST Uncontrolled type 2 diabetes mellitus with hyperglycemia, without long-term current use of insulin ([facility]) from Last 3 Months or Most Recently Relevant to Health Maintenance Results * (ABNORMAL) Urinalysis, Complete, with Reflex to Culture (08/12/2024 7:03 PM EDT) Color Urine Yellow [facility] Appearance Urine Clear [facility] PH 5.0 5.0 - 9.0 [facility] Glucose Urine UA >=1000(A) Negative mg/dL [facility] Urine Blood Small (1+)(A) Negative [facility] Specific [place] - Urine >=1.030(H) 1.005 - 1.025 [facility] Urine Protein Negative Neg-Trace mg/dL [facility] Urine Ketones 15 Negative mg/dL [facility] Nitrite Urine Negative Negative [facility] Leukocyte Esterase Urine Negative Negative [facility] RBC Urine 3-5(A) 0 - 2 /HPF [facility] Urine WBC 0-5 0 - 5 /HPF [facility] Urine Squamous Epithelial Cell 0-2 0 - 2 /HPF [facility] Urine Bacteria None Seen None Seen [facility] Hyaline Casts, Urine 0-2 0 - 2 /LPF [facility] 08/12/2024 7:03 PM EDT 08/12/2024 7:07 PM EDT Narrative [facility] - 08/12/2024 7:23 PM EDT [id number], Clean Catch us Generic External Data Provider LAB URINE ORDERAB LES Final Result [facility] [address] [place], [place] [phone] * (ABNORMAL) CBC auto differential (08/12/2024 7:00 PM EDT) White Blood Count 14.8(H) 4.8 - 10.8 X10*3/uL [facility] Red Blood Count 4.96 4.60 - 5.80 X10*6/uL [facility] Hemoglobin 14.9 14.0 - 18.0 g/dl [facility] Hematocrit 43.5 42.0 - 52.0 % [facility] Mean Corpuscular Volume 87.7 80.0 - 98.0 fL [facility] Mean Corpuscular Hemoglobin 30.0 27.0 - 33.0 pg [facility] Mean Corpuscular HGB Conc 34.3 31.0 - 36.0 g/dl [facility] Red Cell Distribution Width 11.9 11.0 - 16.0 % [facility] Platelet Count 373 160 - 400 X10*3/uL [facility] Mean Platelet Volume 9.4 9.4 - 12.4 fL [facility] Neutrophils Percent Auto 86.2(H) 45 - 73 % [facility] Imm Gran Pct Auto 0.4 0.0 - 0.4 % [facility] Lymphocytes Percent Auto 7.6(L) 20 - 40 % [facility] Monocytes Percent Auto 5.1 2 - 11 % [facility] Eosinophils Percent Auto 0.1 0 - 4 % [facility] Basophils Percent Auto 0.6 0 - 2 % [facility] NRBC Pct Auto 0.0 0.0 - 0.2 /100WBC [facility] Neutrophils Absolute Auto 12.7(H) 2.0 - 8.3 x10*3/uL [facility] Imm Gran Abs Auto 0.06(H) 0.00 - 0.03 X10*3/uL [facility] Lymphocytes Absolute Auto 1.1(L) 1.2 - 4.9 X10*3/uL [facility] Monocytes Absolute Auto 0.8 0.1 - 1.2 X10*3/uL [facility] Eosinophils Absolute Auto 0.0 0.0 - 0.4 X10*3/uL [facility] Basophils Absolute Auto 0.1 0.0 - 0.2 X10*3/uL [facility] NRBC Abs Auto 0.000 0.0 - 0.012 X10*3/uL [facility] 08/12/2024 7:00 PM EDT 08/12/2024 7:05 PM EDT us Generic External Data Provider LAB BLOOD ORDERAB LES Final Result [facility] [address] [place] [address] [phone] * (ABNORMAL) Comprehensive Metabolic Panel (08/12/2024 7:00 PM EDT) Sodium 137 135 - 145 mmol/L [facility] Potassium 5.6(H) 3.3 - 5.1 mmol/L [facility] Chloride 106 96 - 108 mmol/L [facility] Carbon Dioxide 22 22 - 29 mmol/L [facility] Anion Gap 15 12 - 20 [facility] Urea Nitrogen (BUN) 22(H) 9 - 16 mg/dL [facility] Creatinine, Serum 1.10 0.5 - 1.4 mg/dL [facility] Creatinine Clr Calc Pharmacy 103.3 [facility] Comment:eGFR (calculated fro m the MDRD study equation) and eCrCl(calculated from the Cockcroft-Gault equation) are based ondifferent parameters and may not yield comparable results.If eCrCl result is absurd, please check patient'sheight/weight. Estimated Glomerular Filt Rate >60 [facility] Comment:Chronic Kidney Disea se: Estimated GFR < 60 mL/min/1.69m3Bkyezw Kidney Disease: Estimated GFR < 15 mL/min/1.73m2 Glucose 188(H) 60 - 115 mg/dL [facility] Calcium 9.2 8.4 - 10.2 mg/dL [facility] Bilirubin, Total 1.3(H) 0.0 - 1.0 mg/dL [facility] Aspartate Amino Transferase 23 5 - 37 U/L [facility] Alanine Aminotransferase 17 0 - 40 U/L [facility] Total Protein 7.8 6.5 - 8.0 g/dL [facility] Albumin Level 4.6 3.5 - 5.0 g/dL [facility] Alkaline Phosphatase 63 39 - 117 U/L [facility] 08/12/2024 7:00 PM EDT 08/12/2024 7:05 PM EDT Generic External Data Provider LAB BLOOD ORDERAB LES Final Result [facility] [address] [place] [phone] * (ABNORMAL) POCT HGB A1C (08/06/2024 9:01 AM EDT) Only the most recent of2 resultswithin the time period is included. Hemoglobin A1C 11.9(A) 4.0 - 6.0 % QC Media Lot # [id number] Lot# Expiration Date Blood 08/06/2024 9:01 AM EDT Marion Kim MD POINT OF CARE TEST ENTER/EDIT OR DERABLES Final Result * (ABNORMAL) POCT Glucose (08/06/2024 9:01 AM EDT) Only the most recent of2 resultswithin the time period is included. Glucose Blood, POC 236(A) 60 - 200 mg/dL QC Media Lot # [id number] Blood Capillary blood specimen / Unknown 08/06/2024 9:01 AM EDT Marion Kim MD POINT OF CARE TEST ENTER/EDIT OR DERABLES Final Result * (ABNORMAL) Hemoglobin A1c (07/05/2024 8:55 AM EST) Hemoglobin A1c 12.1(H) <6.0 % [facility] Comment:Hemoglobin A1C Refer ence Range Adults: 4.8 - 6.0 % Non diabetic: < 6.0 % Goal: < 7.0 %Additional Action Suggested: > 8.0 %Note: Hemoglobin A1c results are invalid for patients with abnormal amounts of HbF. Blood transfusions may impact the HbA1c concentration in the patient sample. Estimated Average Glucose 301 mg/dL [facility] Comment:eAG = Estimated ave rage glucose which is %A1C expressed asaverage glucose, using the formula of the A0M-SflmxeaUbwdvfx Glucose study (ADAG), Diabetes Care, Vol.31,#8,Nov. 2007 Blood Venous blood specimen / Unknown 07/05/2024 8:55 AM EST 07/05/2024 2:12 PM EST Marion Kim MD LAB BLOOD ORDERABLES Final Resul t [facility] [address] [place] [phone] * (ABNORMAL) Hepatic Function Panel (07/05/2024 8:55 AM EST) Bilirubin, Total 1.1(H) 0.0 - 1.0 mg/dL [facility] Bilirubin, Direct 0.3 0.0 - 0.5 mg/dL [facility] Aspartate Amino Transferase 23 5 - 37 U/L [facility] Alanine Aminotransferase 23 0 - 40 U/L [facility] Total Protein 7.5 6.5 - 8.0 g/dL [facility] Albumin Level 4.2 3.5 - 5.0 g/dL [facility] Alkaline Phosphatase 55 39 - 117 U/L [facility] Blood Venous blood specimen / Unknown 07/05/2024 8:55 AM EST 07/05/2024 2:12 PM EST Marion Kim MD LAB BLOOD ORDERABLES Final Resul t [facility] [address] [place] [phone] * (ABNORMAL) Lipid Panel, Standard (07/05/2024 8:55 AM EST) Triglycerides 239(H) <150 mg/dL [facility] Comment:Desirable Triglyceri de: less than 150 mg/dLBorderline High Triglyceride 150-199 mg/dLHigh Triglyceride: 200-499 mg/dLVery High Triglyceride: greater than or equal to 5OO mg/dL Cholesterol 201(H) <200 mg/dL [facility] Comment:Desirable Cholestero l: less than 200 mg/dLBorderline High Cholesterol: 200-239 mg/dLHigh Cholesterol: greater than 239 mg/dL LDL Cholesterol Calculated 118(H) <100 mg/dL [facility] Comment:Desirable LDL: less than 100 mg/dLNear Optimal/Above Optimal LDL: 110- 129 mg/dLBorderline High LDL: 130-159 mg/dLHigh LDL: 160-189 mg/dLVery High LDL: greater than or equal to 190 mg/dL HDL Cholesterol 36(L) >40 mg/dL [facility] Comment:Desirable HDL: great er than 40 mg/dL Note: This HDL assay may give artificially low results in patients with liver disease. Blood Venous blood specimen / Unknown 07/05/2024 8:55 AM EST 07/05/2024 2:12 PM EST us Marion Kim MD LAB BLOOD ORDERABLES Final Resul t [facility] [address] [place] [address] [phone] * (ABNORMAL) Basic Metabolic Panel (07/05/2024 8:55 AM EST) Sodium 137 135 - 145 mmol/L [facility] Potassium 4.1 3.3 - 5.1 mmol/L [facility] Chloride 104 96 - 108 mmol/L [facility] Carbon Dioxide 24 22 - 29 mmol/L [facility] Anion Gap 13 12 - 20 [facility] Urea Nitrogen (BUN) 21(H) 9 - 16 mg/dL [facility] Creatinine, Serum 0.92 0.5 - 1.4 mg/dL [facility] Estimated Glomerular Filt Rate >60 [facility] Comment:Chronic Kidney Disea se: Estimated GFR < 60 mL/min/1.99q3Zxamgo Kidney Disease: Estimated GFR < 15 mL/min/1.73m2 Glucose 266(H) 60 - 115 mg/dL [facility] Calcium 9.1 8.4 - 10.2 mg/dL [facility] Blood Venous blood specimen / Unknown 07/05/2024 8:55 AM EST 07/05/2024 2:12 PM EST us Marion Kim MD LAB BLOOD ORDERABLES Final Resul t Performing Organization Address City/[facility] [[email or web address]] Co de Phone Number [facility] [address] [place] [phone] * Albumin, Random Urine W/Creatinine (06/02/2023 10:23 AM EST) Creatinine, Urine 88.78 mg/dL [facility] Microalbumin Urine 16.0 mg/L [facility] Microalbum Creatinine Ratio Ur 18.0 <30 ug/mg cr [facility] Comment:Albumin/Creatinine R atio Reference Ranges: Normal: < 30 ug/mg creatinine Microalbuminuria: 30 - 300 ug/mg creatinineClinical Albuminuria: > 300 ug/mg creatinine Urine (Urine, Random) 06/02/2023 10:23 AM EST 06/02/2023 11:11 AM EST us Ok Arroyo MD LAB URINE ORDERABLES Final Resul t Performing Organization Address City/[facility] [[email or web address]] Co de Phone Number [facility] [address] [place] [phone] from Last 3 Months or Most Recently Relevant to Health Maintenance Insurance [facility] C3 Care Teams Contract Administrator Relationship Specialty Start Date End Date Marion Kim MD [address] [place] [phone] PCP - General Family Medicine 07/11/23
[2024-08-12] MEDS: 0.9 % Sodium Chloride 1,000 ML 999 ML IV (21:59)
[2024-08-12 22:00] VITALS: BP 106/69; PULSE 87; RESP 16; O2SAT 99
[2024-08-12] MEDS: Morphine Sulfate 4 MG/ML CARTRIDGE IVPUSH (22:13)
[2024-08-12] MEDS: Ketorolac Tromethamine 30 MG/ML VIAL IVPUSH (22:13)
[2024-08-12] MEDS: ondansetron HCL 4 MG/2 ML VIAL IVPUSH (22:13)
[2024-08-12 23:22] VITALS: BP 101/65; PULSE 86; RESP 13; TEMP 36.7; O2SAT 99
[2024-08-12] MEDS: Tamsulosin HCL 0.4 MG CAPSULE PO (23:54)
[2024-08-12] MEDS: oxyCODONE HCl Immed Release 5 MG TABLET 10 MG PO (23:55)
[2024-08-12 23:58] VITALS: BP 101/65; PULSE 86; RESP 13; TEMP 36.7; O2SAT 99
== END 2024-08-13 | disposition home or self-care (01) ==
PROVIDERS: Registered Nurse Emergency; Emergency Provider Internal Medicine; PCP Student in an Organized Health Care Education/Training Program
DX: N20.0 Calculus of kidney (principal); R10.32 Left lower quadrant pain; R11.2 Nausea with vomiting, unspecified; Z79.899 Other long term (current) drug therapy
CPT/HCPCS: 36415; 74176; 80053; 81001; 85025; 96361; 96374; 96375; 99284; J1885; J2270; J2405

== ENCOUNTER → 2024-08-12 21:49 | Outpatient (BNV) | payer MEDICAID, SELFPAY | PROVIDERS: Emergency Provider Internal Medicine; PCP Student in an Organized Health Care Education/Training Program; Visit Provider Specialist | DX: N13.2 Hydronephrosis with renal and ureteral calculous obstruction (principal) | CPT/HCPCS: 74176 ==

== ENCOUNTER 2024-08-21 11:00 | Outpatient (REF) | payer MEDICAID, SELFPAY ==
--- OUTSIDE RECORDS SUMMARY | 2024-08-21 13:08 | XMS_ITS | Clinical Summary ---
Author Organization [employer] Address [address] [facility] [address] [place] [address] Care Team Providers Care Refuge Worker Name Role Phone Marion Kim MD Primary Care Provider [phone] Emely Reyez PharmD Unavailable [phone] Allergies Active Allergy Reactions Criticality Noted Date Comments Sulfa Antibiotics 06/02/2023 Medications FreeStyle lancets 1 each by Other route [...] 024 Active Blood Glucose Monitoring Suppl (FreeStyle Canadensis Lite) w/Device kit USE TO TEST BLOOD SUGAR TWICE DAILY 1 kit 024 Active Continuous Glucose Stock Analyst (FreeStyle Britt 2 [place]) device Scan sensor every 8 hours 1 each 024 Active Continuous Glucose Sensor (FreeStyle Britt 2 Sensor) misc Apply 1 sensor every 14 days 2 each 3 024 Active metFORMIN (Glucophage) 1000 MG tabletIndications :Uncontrolled type 2 diabetes mellitus with hyperglycemia, without long-term current use of insulin (CMS/HCC) TAKE 1 TABLET BY MOUTH TWICE DAILY 180 tablet 1 024 Active aspirin 81 MG EC tablet Take 1 tablet (81 mg) by mouth Once per day. 30 tablet 11 025 2025 Active atorvastatin (Lipitor) 10 MG tabletIndications [...] per day. 30 tablet 11 2025 Active Alcohol Swabs (Alcohol Pads) 70 % pads Use as directed on skin 100 each 2024 Discontinued(D uplicate order (will not trigger notification to Pharmacy)) dulaglutide (Trulicity) 0.75 MG/0.5ML solution pen-injector Inject 0.75 mg under the skin 1 (one) time per week. 4 each 2024 Discontinued glipiZIDE (Glucotrol) 10 MG tabletIndications :Uncontrolled type 2 diabetes mellitus with hyperglycemia, without long-term current use of insulin ([facility]) TAKE 1 TABLET BY MOUTH EVERY MORNING 90 tablet 1 2024 Discontinued(M ed list cleanup (will not trigger notification to Pharmacy)) Dulaglutide (Trulicity) 1.5 MG/0.5ML solution auto-injector Inject 1.5 mg under the skin 1 (one) time per week. 2 mL 2 025 2024 Discontinued(R eorder (will not trigger notification to Pharmacy)) Active Problems Problem Noted Date Diagnosed Date Hyperlipidemia 06/03/2023 Uncontrolled type 2 diabetes mellitus with hyperglycemia, without long-term current use of insulin 06/03/2023 Encounters Date Type Department Care Team Description 08/21/2024 Travel 08/12/2024 Orders Only GENERIC EXTERNAL DATA DEPARTMENT Provider, Generic External Data 08/06/2024 8:30 AM EDT Office Visit [facility] [address] [place] [address] Marion Kim MD Uncontrolled type 2 diabetes mellitus with hyperglycemia, without long-term current use of insulin (CMS/[facility]) (Primary Dx); Hyperlipidemia, unspecified hyperlipidemia type 07/13/2024 Population Health Risk Score [facility] (C3) Department [address] [place] [address] [phone] Provider, Population Health Generic 07/04/2024 3:00 PM EST Office Visit [facility] [address] [place] [address] Marion Kim MD Uncontrolled type 2 diabetes mellitus with hyperglycemia, without long-term current use of insulin (CMS/[facility]) (Primary Dx); Erectile dysfunction, unspecified erectile dysfunction type; Hyperlipidemia, unspecified hyperlipidemia type 07/04/2024 Travel 07/04/2024 Telephone [facility] [address] [place] [address] Marion Kim MD 06/06/2024 Refill [facility] [address] [place] [address] Marion Kim MD Hyperlipidemia, unspecified hyperlipidemia type from Last 3 Months Immunizations Name Administration Dates Next Due Hep B, adult 08/21/2024 Pneumococcal Conjugate PCV 20 08/21/2024 Tdap 09/07/2023 Social History Tobacco Use Types [...] Care Team (Late st Contact Info) Description 09/05/2024 10:00 AM EDT Telemedicine [facility] [address] [place] [address] Marion Kim MD [address] [place] [address] 09/18/2024 10:30 AM EDT Medication Management [facility] [address] [place] [address] Emely Reyez, PharmD [address] [place] [address] Health Maintenance Due Date Last Done Comments CT Colonography 1973 Colonoscopy 1973 Colorectal Cancer Screening 1973 FIT DNA/Cologuard 1973 FIT 1973 FOBT 1973 HIV Screening 1973 Sigmoidoscopy 1973 Family Planning (PISQ) 01/15/1988 Hepatitis C Screening 1991 Zoster Vaccines (1 of 2) 2023 COVID-19 Vaccine ( - season) 2024 Influenza Vaccine (#1) 2024 Diabetes: Urine Protein Screening 06/02/2024 06/02/2023 SDOH Screening 06/29/2024 06/30/2023 Diabetes: Foot Exam 09/06/2024 09/07/2023, 09/07/2023, 09/07/2023, Additional history exists Hepatitis B Vaccines (2 of 3 - 19+ 3-dose series) 09/18/2024 08/21/2024 Diabetes: Hemoglobin A1C 11/05/2024 025, 07/05/2024, 07/04/2024, Additional history exists Tobacco Screening 11/09/2024 11/10/2023 Lipid Panel 07/05/2025 07/05/2024, 06/02/2023 Alcohol/Substance Use Screening 08/06/2025 08/06/2024 Depression Screening 08/06/2025 08/06/2024, 08/07/19 25 Eye Exam 08/29/2025 08/30/2023, 08/02, 08/30/2023, Additional history exists DTaP/Tdap/Td Vaccines (2 - Td or Tdap) 09/06/2033 09/07/2023 RSV Patients and Patients Aged 60 years or older (1 - 1-dose 75+ series) 01/15/2048 Pneumococcal Vaccine: 50+ Years Completed 08/21/2024 HIB Vaccines Aged Out No longer eligi [...] Procedure Name Priority Date/Time Associated Diagnosis Comments CT ABDOMEN PELVIS WO CONTRAST Routine 08/12/2024 10:31 PM EDT URINALYSIS, COMPLETE, WITH REFLEX TO CULTURE Routine [...] hyperglycemia, without long-term current use of insulin ([facility]) Hyperlipidemia, unspecified hyperlipidemia type BASIC METABOLIC PANEL Routine 07/05/2024 8:55 AM EST Uncontrolled type 2 diabetes mellitus with hyperglycemia, without long-term current use of insulin ([facility]) Hyperlipidemia, unspecified hyperlipidemia type POCT GLYCATED HEMOGLOBIN, TOTAL Routine 07/04/2024 3:37 PM EST Uncontrolled type 2 diabetes mellitus with hyperglycemia, without long-term current use of insulin ([facility]) POCT GLUCOSE Routine 07/04/2024 3:37 PM EST Uncontrolled type 2 diabetes mellitus with hyperglycemia, without long-term current use of insulin ([facility]) ALBUMIN, RANDOM URINE W/CREATININE Routine 06/02/2023 10:23 AM EST Uncontrolled type 2 diabetes mellitus with hyperglycemia, without long-term current use of insulin ([facility]) from Last 3 Months or Most Recently Relevant to Health Maintenance Results * CT Abdomen Pelvis w/o Contrast (08/12/2024 10:31 PM EDT) Anatomical Region Laterality Modality Body, Pelvis, Abdomen Computed T omography 08/12/2024 10:3 1 PM EDT Narrative 08/12/2024 10:32 PM EDT ? [facility] ?[address] ?[place] [address] ? CT Scan Report ? Signed ? Patient: White Mian,Dc J ?M ?? R#: [id number] ? : 1975 ?Acct:[id number] ? Age/Sex: 49 / M ?ADM Date: 04/13/25 ? Loc: HO.ED ? Attending Dr: ? Ordering Physician: Sophia,Lm A. MD ?? Date of Service: 08/12/24 ?? Procedure(s): CT abdomen pelvis wo IV con ?? Accession Number(s): [id number] ? cc: Marion Kim MD; Lm Cortes MD ? Report Number: ?? [id number]: Total DLP = ??671.00 mGy-cm ? CLINICAL HISTORY: l flank pain stone ? CT abdomen and pelvis without contrast ? Comparison: None ? Findings: ?? The lung bases are clear. ? The gallbladder and solid organs are within normal limits. ?? There are bilateral renal parenchymal calculi. ?? There is moderate left hydroureteronephrosis secondary to a distal ?? ureteral 4.8 mm calculus. ?? No bowel obstruction, pneumoperitoneum, or pneumatosis. ? Pelvic contents unremarkable. Normal appendix. ?? The bones are intact. ? IMPRESSION: ?? Moderate left hydroureteronephrosis secondary to a distal ureteral 4.8 mm ?? calculus. ? This document has been electronically signed by: Elmer Liu MD on ?? 08/12/2024 22:31:53 ? Dictated By: ?Elmer Liu MD ? Signed By: ?<Electronically signed by Elmer Liu MD in OV> ?08/12/242 ? DD/ 30 ? TD/TT: 08/12/242230 ? Wet Wash Assembler: ? Procedure Note Bartolome, Jonathan - 08/12/[address] [place] [address] [address] Scan Report Signed Patient: Dc Sears R#: [id number] : 1975Acct:[id number] Age/Sex: 49 / MADM Date: 08/12/24 Loc: HO.ED Attending Dr: Ordering Physician: Lm Cortes MD Date of Service: 08/12/24 Procedure(s): CT abdomen pelvis wo IV con Accession Number(s): [id number] cc: Marion Kim MD; Lm Cortes MD Report Number: [id number]: Total DLP = 671.00 mGy-cm CLINICAL HISTORY: l flank pain stone CT abdomen and pelvis without contrast Comparison: None Findings: The lung bases are clear. The gallbladder and solid organs are within normal limits. There are bilateral renal parenchymal calculi. There is moderate left hydroureteronephrosis secondary to a distal ureteral 4.8 mm calculus. No bowel obstruction, pneumoperitoneum, or pneumatosis. Pelvic contents unremarkable. Normal appendix. The bones are intact. IMPRESSION: Moderate left hydroureteronephrosis secondary to a distal ureteral 4.8 mm calculus. This document has been electronically signed by: Elmer Liu MD on 08/12/2024 22:31:53 Dictated By: Elmer Liu MD Signed By: <Electronically signed by Elmer Liu MD in OV> 08/12/242231 DD/ 30 TD/TT: 08/12/242230 Wet Wash Assembler: [facility] External Provider IMG CT PROCEDURES Edited Result - Final * (ABNORMAL) Urinalysis, Complete, with Reflex to Culture (08/12/2024 7:03 PM EDT) Color Urine Yellow [facility] Appearance Urine Clear [facility] PH 5.0 5.0 - 9.0 [facility] Glucose Urine UA >=1000(A) Negative mg/dL [facility] Urine Blood Small (1+)(A) Negative [facility] Specific [place] - Urine >=1.030(H) 1.005 - 1.025 [facility] Urine Protein Negative Neg-Trace mg/dL [facility] Urine Ketones 15 Negative mg/dL [facility] Nitrite Urine Negative Negative [facility] Leukocyte Esterase Urine Negative Negative [facility] RBC Urine 3-5(A) 0 - 2 /HPF [facility] Urine WBC 0-5 0 - 5 /HPF [facility] Urine Squamous Epithelial Cell 0-2 0 - 2 /HPF [facility] Urine Bacteria None Seen None Seen [facility] Hyaline Casts, Urine 0-2 0 - 2 /LPF [facility] 08/12/2024 7:03 PM EDT 08/12/2024 7:07 PM EDT Narrative [facility] - 08/12/2024 7:23 PM EDT [id number], Clean Catch Generic External Data Provider LAB URINE ORDERAB LES Final Result [facility] [address] [place] [address] [phone] * (ABNORMAL) CBC auto differential (08/12/2024 7:00 PM EDT) White Blood Count 14.8(H) 4.8 - 10.8 X10*3/uL [facility] Red Blood Count 4.96 4.60 - 5.80 X10*6/uL [facility] Hemoglobin 14.9 14.0 - 18.0 g/dl [facility] Hematocrit 43.5 42.0 - 52.0 % [facility] Mean Corpuscular Volume 87.7 80.0 - 98.0 fL [facility] Mean Corpuscular Hemoglobin 30.0 27.0 - 33.0 pg [facility] Mean Corpuscular HGB Conc 34.3 31.0 - 36.0 g/dl [facility] Red Cell Distribution Width 11.9 11.0 - 16.0 % [facility] Platelet Count 373 160 - 400 X10*3/uL [facility] Mean Platelet Volume 9.4 9.4 - 12.4 fL [facility] Neutrophils Percent Auto 86.2(H) 45 - 73 % [facility] Imm Gran Pct Auto 0.4 0.0 - 0.4 % [facility] Lymphocytes Percent Auto 7.6(L) 20 - 40 % [facility] Monocytes Percent Auto 5.1 2 - 11 % [facility] Eosinophils Percent Auto 0.1 0 - 4 % [facility] Basophils Percent Auto 0.6 0 - 2 % [facility] NRBC Pct Auto 0.0 0.0 - 0.2 /100WBC [facility] Neutrophils Absolute Auto 12.7(H) 2.0 - 8.3 x10*3/uL [facility] Imm Gran Abs Auto 0.06(H) 0.00 - 0.03 X10*3/uL [facility] Lymphocytes Absolute Auto 1.1(L) 1.2 - 4.9 X10*3/uL [facility] Monocytes Absolute Auto 0.8 0.1 - 1.2 X10*3/uL [facility] Eosinophils Absolute Auto 0.0 0.0 - 0.4 X10*3/uL [facility] Basophils Absolute Auto 0.1 0.0 - 0.2 X10*3/uL [facility] NRBC Abs Auto 0.000 0.0 - 0.012 X10*3/uL [facility] 08/12/2024 7:00 PM EDT 08/12/2024 7:05 PM EDT us Generic External Data Provider LAB BLOOD ORDERAB LES Final Result [facility] [address] [place] [address] [phone] * (ABNORMAL) Comprehensive Metabolic Panel (08/12/2024 7:00 PM EDT) Sodium 137 135 - 145 mmol/L [facility] Potassium 5.6(H) 3.3 - 5.1 mmol/L [facility] Chloride 106 96 - 108 mmol/L [facility] Carbon Dioxide 22 22 - 29 mmol/L [facility] Anion Gap 15 12 - 20 [facility] Urea Nitrogen (BUN) 22(H) 9 - 16 mg/dL [facility] Creatinine, Serum 1.10 0.5 - 1.4 mg/dL [facility] Creatinine Clr Calc Pharmacy 103.3 [facility] Comment:eGFR (calculated fro m the MDRD study equation) and eCrCl(calculated from the Cockcroft-Gault equation) are based ondifferent parameters and may not yield comparable results.If eCrCl result is absurd, please check patient'sheight/weight. Estimated Glomerular Filt Rate >60 [facility] Comment:Chronic Kidney Disea se: Estimated GFR < 60 mL/min/1.33k1Dhrlav Kidney Disease: Estimated GFR < 15 mL/min/1.73m2 Glucose 188(H) 60 - 115 mg/dL [facility] Calcium 9.2 8.4 - 10.2 mg/dL [facility] Bilirubin, Total 1.3(H) 0.0 - 1.0 mg/dL [facility] Aspartate Amino Transferase 23 5 - 37 U/L [facility] Alanine Aminotransferase 17 0 - 40 U/L [facility] Total Protein 7.8 6.5 - 8.0 g/dL [facility] Albumin Level 4.6 3.5 - 5.0 g/dL [facility] Alkaline Phosphatase 63 39 - 117 U/L [facility] 08/12/2024 7:00 PM EDT 08/12/2024 7:05 PM EDT Generic External Data Provider LAB BLOOD ORDERAB LES Final Result [facility] [address] [place] [phone] * (ABNORMAL) POCT HGB A1C (08/06/2024 9:01 AM EDT) Only the most recent of2 resultswithin the time period is included. Hemoglobin A1C 11.9(A) 4.0 - 6.0 % QC Media Lot # [id number] Lot# Expiration Date Blood 08/06/2024 9:01 AM EDT Result [facility] Marion Kim MD POINT OF CARE TEST ENTER/EDIT OR DERABLES Final Result * (ABNORMAL) POCT Glucose (08/06/2024 9:01 AM EDT) Only the most recent of2 resultswithin the time period is included. Glucose Blood, POC 236(A) 60 - 200 mg/dL QC Media Lot # [id number] Blood Capillary blood specimen / Unknown 08/06/2024 9:01 AM EDT Result [facility] Marion Kim MD POINT OF CARE TEST ENTER/EDIT OR DERABLES Final Result * (ABNORMAL) Hemoglobin A1c (07/05/2024 8:55 AM EST) Hemoglobin A1c 12.1(H) <6.0 % [facility] Comment:Hemoglobin A1C Refer ence Range Adults: 4.8 - 6.0 % Non diabetic: < 6.0 % Goal: < 7.0 %Additional Action Suggested: > 8.0 %Note: Hemoglobin A1c results are invalid for patients with abnormal amounts of HbF. Blood transfusions may impact the HbA1c concentration in the patient sample. Estimated Average Glucose 301 mg/dL [facility] Comment:eAG = Estimated ave rage glucose which is %A1C expressed asaverage glucose, using the formula of the K5X-MxhdokpXogzdoi Glucose study (ADAG), Diabetes Care, Vol.31,#8,2007 Blood Venous blood specimen / Unknown 07/05/2024 8:55 AM EST 07/05/2024 2:12 PM EST Marion Kim MD LAB BLOOD ORDERABLES Final Resul t [facility] [address] [place] [phone] * (ABNORMAL) Hepatic Function Panel (07/05/2024 8:55 AM EST) Bilirubin, Total 1.1(H) 0.0 - 1.0 mg/dL [facility] Bilirubin, Direct 0.3 0.0 - 0.5 mg/dL [facility] Aspartate Amino Transferase 23 5 - 37 U/L [facility] Alanine Aminotransferase 23 0 - 40 U/L [facility] Total Protein 7.5 6.5 - 8.0 g/dL [facility] Albumin Level 4.2 3.5 - 5.0 g/dL [facility] Alkaline Phosphatase 55 39 - 117 U/L [facility] Blood Venous blood specimen / Unknown 07/05/2024 8:55 AM EST 07/05/2024 2:12 PM EST Marion Kim MD LAB BLOOD ORDERABLES Final Resul t [facility] [address] [place] [address] [phone] * (ABNORMAL) Lipid Panel, Standard (07/05/2024 8:55 AM EST) Triglycerides 239(H) <150 mg/dL [facility] Comment:Desirable Triglyceri de: less than 150 mg/dLBorderline High Triglyceride 150-199 mg/dLHigh Triglyceride: 200-499 mg/dLVery High Triglyceride: greater than or equal to 5OO mg/dL Cholesterol 201(H) <200 mg/dL [facility] Comment:Desirable Cholestero l: less than 200 mg/dLBorderline High Cholesterol: 200-239 mg/dLHigh Cholesterol: greater than 239 mg/dL LDL Cholesterol Calculated 118(H) <100 mg/dL [facility] Comment:Desirable LDL: less than 100 mg/dLNear Optimal/Above Optimal LDL: 110- 129 mg/dLBorderline High LDL: 130-159 mg/dLHigh LDL: 160-189 mg/dLVery High LDL: greater than or equal to 190 mg/dL HDL Cholesterol 36(L) >40 mg/dL [facility] Comment:Desirable HDL: great er than 40 mg/dL Note: This HDL assay may give artificially low results in patients with liver disease. Blood Venous blood specimen / Unknown 07/05/2024 8:55 AM EST 07/05/2024 2:12 PM EST us Marion Kim MD LAB BLOOD ORDERABLES Final Resul t [facility] [address] [place] [phone] * (ABNORMAL) Basic Metabolic Panel (07/05/2024 8:55 AM EST) Sodium 137 135 - 145 mmol/L [facility] Potassium 4.1 3.3 - 5.1 mmol/L [facility] Chloride 104 96 - 108 mmol/L [facility] Carbon Dioxide 24 22 - 29 mmol/L [facility] Anion Gap 13 12 - 20 [facility] Urea Nitrogen (BUN) 21(H) 9 - 16 mg/dL [facility] Creatinine, Serum 0.92 0.5 - 1.4 mg/dL [facility] Estimated Glomerular Filt Rate >60 [facility] Comment:Chronic Kidney Disea se: Estimated GFR < 60 mL/min/1.29w3Iegnrk Kidney Disease: Estimated GFR < 15 mL/min/1.73m2 Glucose 266(H) 60 - 115 mg/dL [facility] Calcium 9.1 8.4 - 10.2 mg/dL [facility] Blood Venous blood specimen / Unknown 07/05/2024 8:55 AM EST 07/05/2024 2:12 PM EST us Marion Kim MD LAB BLOOD ORDERABLES Final Resul t Performing Organization Address City/[facility] Co de Phone Number [facility] [address] [place] [phone] * Albumin, Random Urine W/Creatinine (06/02/2023 10:23 AM EST) Creatinine, Urine 88.78 mg/dL [facility] Microalbumin Urine 16.0 mg/L [facility] Microalbum Creatinine Ratio Ur 18.0 <30 ug/mg cr [facility] Comment:Albumin/Creatinine R atio Reference Ranges: Normal: < 30 ug/mg creatinine Microalbuminuria: 30 - 300 ug/mg creatinineClinical Albuminuria: > 300 ug/mg creatinine Urine (Urine, Random) 06/02/2023 10:23 AM EST 06/02/2023 11:11 AM EST us Ok Arroyo MD LAB URINE ORDERABLES Final Resul t Performing Organization Address City/[facility] Co de Phone Number [facility] [address] [place] [phone] from Last 3 Months or Most Recently Relevant to Health Maintenance Insurance [facility] C3 Care Teams Refuge Worker Relationship Specialty Start Date End Date Marion Kim MD [address] [place] [address] PCP - General Family Medicine 07/11/23 Emely Reyez, AminaD [address] [place] [address] Pharmacist Internal Medicine 08/21/24
--- OUTSIDE RECORDS SUMMARY | 2024-08-21 13:08 | XMS_ITS | Encounter Summary ---
Author Organization [employer] Address [address] [place] [address] Care Team Providers Care Octave Board Racker Name Role Phone Marion Kim MD Primary Care Provider [phone] Emely Reyez PharmD Unavailable [phone] Encounter Details Date Type Department Care Team (Latest Contact Info) Description 08/21/2024 Travel Social History Tobacco Use Types Packs/Day [...] Info) Description 09/05/2024 10:00 AM EDT Telemedicine [facility] [address] [place] [address] Marion Kim MD [address] [place] [address] 09/18/2024 10:30 AM EDT Medication Management [facility] [address] [place] [address] Emely Reyez PharmMandy [address] [place] [address] documented as of this encounter Visit Diagnoses Not on filedocumented in this encounter Additional Health Concerns Assessment Noted Time PHQ-9 Depression Total Score: 0 08/07/19 25 8:40 AM EDT documented as of this encounter Care Teams Octave Board Racker Relationship Specialty Start Date End Date Marion Kim MD [address] [place] [address] PCP - General Family Medicine 07/11/23 Emely Reyez, PharmD [address] [place] [address] Pharmacist Internal Medicine 08/21/24 documented as of this encounter
[2024-08-21 14:38] LABS: Anion Gap 13 (12-20); Blood Urea Nitrogen 22 mg/dL (9-16); Calcium 9.5 mg/dL (8.4-10.2); Carbon Dioxide 25 mmol/L (22-29); Chloride 104 mmol/L (96-108); Estimated Glomerular Filt Rate > 60; Glucose Random 169 mg/dL (60-115); Potassium 4.2 mmol/L (3.3-5.1); Sodium 138 mmol/L (135-145)
[2024-08-21 14:57] LABS: Creatinine Urine 83.77 mg/dL; Microalbum/Creatinine Ratio Ur 15.5 ug/mg cr (<30)
== END 2024-08-21 11:01 | disposition home or self-care (01) ==
LOC: HO.CHCLDS 11:00
PROVIDERS: Visit Provider Student in an Organized Health Care Education/Training Program
DX: E11.65 Type 2 diabetes mellitus with hyperglycemia (principal)
CPT/HCPCS: 36415; 80048; 82043; 82570

== ENCOUNTER 2024-09-28 13:58 | Outpatient (AMB) | payer MEDICAID, SELFPAY ==
--- OUTSIDE RECORDS SUMMARY | 2024-09-28 14:01 | XMS_ITS | Clinical Summary ---
Author Organization [employer] Address [address] [facility] [address] [place] [address] Care Team Providers Care Living Manager Name Role Phone Marion Kim MD Primary Care Provider [phone] Emely Reyez PharmD Unavailable [phone] Allergies Active Allergy Reactions Criticality Noted Date [...] 024 Active Blood Glucose Monitoring Suppl (FreeStyle [place] Lite) w/Device kit USE TO TEST BLOOD SUGAR TWICE DAILY 1 kit Active aspirin 81 MG EC tablet Take 1 tablet (81 mg) by mouth Once per day. 30 tablet 11 025 2025 Active atorvastatin (Lipitor) 10 MG tabletIndications :Hyperlipidemia, unspecified hyperlipidemia type Take 1 tablet (10 mg) by mouth at bedtime. 90 tablet 025 Active senna (Senokot) 8.6 MG tablet TAKE TWO TABLETS EVERY NIGHT AT BEDTIME NEEDED FOR CONSTIPATION Active triamcinolone (Kenalog) 0.1 % cream Apply topically if needed in the morning and at bedtime (pain and swelling). 30 g 2 04/07/2 025 Active Dulaglutide (Trulicity) 1.5 MG/0.5ML solution auto-injector Inject 1.5 mg under the skin 1 (one) time per week. 2 mL 2 Active lisinopril 5 MG tablet Take 1 tablet (5 mg) by mouth Once per day. 30 tablet 11 025 2025 Active empagliflozin (Jardiance) 25 MG Take 1 tablet (25 mg) by mouth Once per day. 30 tablet 11 Active Continuous Glucose Sensor (FreeStyle Britt 3 Plus Sensor) misc 1 each every 15 days. 2 each Active metFORMIN (Glucophage) 1000 MG tabletIndications :Uncontrolled type 2 diabetes mellitus with hyperglycemia, without long-term current use of insulin (CMS/[facility]) Take 1 tablet (1,000 mg) by mouth 2 times daily. 180 tablet 1 Active Continuous Glucose Final Expense Agent (FreeStyle Britt 2 [place]) device Scan sensor every 8 hours 1 each 024 2024 Discontinued(A lternate therapy) Continuous Glucose Sensor (FreeStyle Britt 2 Sensor) misc Apply 1 sensor every 14 days 2 each 3 024 2024 Discontinued(A lternate therapy) metFORMIN (Glucophage) 1000 MG tabletIndications :Uncontrolled type 2 diabetes mellitus with hyperglycemia, without long-term current use of insulin (CMS/[facility]) TAKE 1 TABLET BY MOUTH TWICE DAILY 180 tablet 1 024 2024 Discontinued empagliflozin (Jardiance) 10 MG Take 1 tablet (10 mg) by mouth Once per day. 30 tablet 025 2024 Discontinued(D ose adjustment) metFORMIN (Glucophage) 1000 MG tabletIndications :Uncontrolled type 2 diabetes mellitus with hyperglycemia, without long-term current use of insulin (CMS/HCC) TAKE 1 TABLET BY MOUTH TWICE DAILY 180 tablet 1 025 2024 Discontinued(R eorder (will not trigger notification to Pharmacy)) Active Problems Problem Noted Date Diagnosed Date Hyperlipidemia 06/03/2023 Uncontrolled type 2 diabetes mellitus with hyperglycemia, without long-term current use of insulin 06/03/2023 Encounters Date Type Department Care Team Description 09/18/2024 Travel 09/16/2024 Refill [facility] [address] [place] [address] Marion Kim MD Uncontrolled type 2 diabetes mellitus with hyperglycemia, without long-term current use of insulin (CMS/HCC) 09/05/2024 10:00 AM EDT Telemedicine [facility] [address] [place] [address] Marion Kim MD Type 2 diabetes mellitus without complication, with long-term current use of insulin (CMS/HCC) (Primary Dx); Hyperlipidemia, unspecified hyperlipidemia type 09/05/2024 Travel 08/21/2024 Travel 08/12/2024 Orders Only GENERIC EXTERNAL DATA DEPARTMENT Provider, Generic External Data 08/06/2024 8:30 AM EDT Office Visit [facility] [address] [place] [address] Marion Kim MD Uncontrolled type 2 diabetes mellitus with hyperglycemia, without long-term current use of insulin (CMS/HCC) (Primary Dx); Hyperlipidemia, unspecified hyperlipidemia type 07/13/2024 Population Health Risk Score [facility] ([facility]) Department [address] [place] [phone] Provider, Population Health Generic 07/04/2024 3:00 PM EST Office Visit [facility] [address] [place] [address] Marion Kim MD Uncontrolled type 2 diabetes mellitus with hyperglycemia, without long-term current use of insulin (CMS/HCC) (Primary Dx); Erectile dysfunction, unspecified erectile dysfunction type; Hyperlipidemia, unspecified hyperlipidemia type 07/04/2024 Travel 07/04/2024 Telephone [facility] [address] [place] [address] Marion Kim MD from Last 3 Months Immunizations Immunization Administration Dates Next Due Hep B, adult 09/18/2024,08/21/2024 Pneumococcal Conjugate PCV 20 08/21/2024 Tdap 09/07/2023 [...] Care Team (Late st Contact Info) Description 11/12/2024 10:30 AM EDT Medication Management [facility] [address] [place] [address] Emely Reyez, PharmD [address] [place] [address], [place] [phone] Health Maintenance Due Date Last Done Comments CT Colonography 1973 Colonoscopy 1973 Colorectal Cancer Screening 1973 FIT DNA/Cologuard 1973 FIT 1973 FOBT 1975 HIV Screening 1975 Sigmoidoscopy 1973 Disability Screening 1973 Family Planning (PISQ) 01/15/1988 Hepatitis C Screening 1991 Zoster Vaccines (1 of 2) 2023 COVID-19 Vaccine ( - 2023- season) 2024 Influenza Vaccine (#1) 2024 SDOH Screening 06/29/2024 06/30/2023 Diabetes: Foot Exam 09/06/2024 09/07/2023, 09/07/2023, 09/07/2023, Additional history exists Diabetes: Hemoglobin A1C 11/05/2024 025, 07/05/2024, 07/04/2024, Additional history exists Tobacco Screening 11/09/2024 11/10/2023 Hepatitis B Vaccines (3 of 3 - 19+ 3-dose series) 02/20/2025 09/18/2024, 08/21/2024 Lipid Panel 07/05/2025 07/05/2024, 06/02/2023 Alcohol/Substance Use Screening 08/06/2025 08/06/2024 Depression Screening 08/06/2025 08/06/2024, 08/07/19 Diabetes: Urine Protein Screening 08/21/2025 08/21/2024, 06/02/2023 Eye Exam 08/29/2025 08/30/2023, 08/02, 08/30/2023, Additional [...] patient's age to complete this topic Meningococcal B Vaccine Aged Out No l onger eligible based on patient's age to complete [...] Procedure Name Priority Date/Time Associated Diagnosis Comments ALBUMIN, RANDOM URINE W/CREATININE Routine 08/21/2024 11:05 AM EDT BASIC METABOLIC PANEL Routine 08/21/2024 11:[address] ABDOMEN PELVIS WO CONTRAST Routine 08/12/2024 10:31 PM EDT URINALYSIS, COMPLETE, WITH REFLEX TO CULTURE Routine 08/12/2024 7:03 PM EDT COMPREHENSIVE METABOLIC PANEL Routine 08/12/2024 7:00 PM EDT CBC WITH AUTO DIFFERENTIAL Routine 08/12/2024 7:00 PM EDT POCT GLYCATED HEMOGLOBIN, TOTAL Routine 08/06/2024 9:01 AM EDT Uncontrolled type 2 diabetes mellitus with hyperglycemia, without long-term current use of insulin (CMS/[facility]) POCT GLUCOSE Routine 08/06/2024 9:01 AM EDT Uncontrolled type 2 diabetes mellitus with hyperglycemia, without long-term current use of insulin (CMS/[facility]) HEMOGLOBIN A1C Routine 07/05/2024 8:55 AM EST Uncontrolled type 2 diabetes mellitus with hyperglycemia, without long-term current use of insulin ([facility]) HEPATIC FUNCTION PANEL Routine 07/05/2024 8:55 AM EST Uncontrolled type 2 diabetes mellitus with hyperglycemia, without long-term current use of insulin ([facility]) LIPID PANEL, STANDARD Routine 07/05/2024 8:55 AM EST Uncontrolled type 2 diabetes mellitus with hyperglycemia, without long-term current use of insulin ([facility]) Hyperlipidemia, unspecified hyperlipidemia type BASIC METABOLIC PANEL Routine 07/05/2024 8:55 AM EST Uncontrolled type 2 diabetes mellitus with hyperglycemia, without long-term current use of insulin ([facility]) Hyperlipidemia, unspecified hyperlipidemia type POCT GLYCATED HEMOGLOBIN, TOTAL Routine 07/04/2024 3:37 PM EST Uncontrolled type 2 diabetes mellitus with hyperglycemia, without long-term current use of insulin ([facility]) POCT GLUCOSE Routine 07/04/2024 3:37 PM EST Uncontrolled type 2 diabetes mellitus with hyperglycemia, without long-term current use of insulin ([facility]) from Last 3 Months Results * Albumin, Random Urine W/Creatinine (08/21/2024 11:05 AM EDT) Creatinine, Urine 83.77 mg/dL [facility] Microalbumin Urine 13.0 mg/L [facility] Microalbum Creatinine Ratio Ur 15.5 <30 ug/mg cr [facility] Comment:Albumin/Creatinine R atio Reference Ranges: Normal: < 30 ug/mg creatinine Microalbuminuria: 30 - 300 ug/mg creatinineClinical Albuminuria: > 300 ug/mg creatinine 08/21/2024 11:0 5 AM EDT 08/21/2024 2:04 PM EDT us Marion Kim MD LAB URINE ORDERABLES Final Resul t Performing Organization Address [facility] de Phone Number [facility] [address] [place] [address] [phone] * (ABNORMAL) Basic Metabolic Panel (08/21/2024 11:01 AM EDT) Only the most recent of2 resultswithin the time period is included. Sodium 138 135 - 145 mmol/L [facility] Potassium 4.2 3.3 - 5.1 mmol/L [facility] Chloride 104 96 - 108 mmol/L [facility] Carbon Dioxide 25 22 - 29 mmol/L [facility] Anion Gap 13 12 - 20 [facility] Urea Nitrogen (BUN) 22(H) 9 - 16 mg/dL [facility] Creatinine, Serum 0.83 0.5 - 1.4 mg/dL [facility] Estimated Glomerular Filt Rate >60 [facility] Comment:Chronic Kidney Disea se: Estimated GFR < 60 mL/min/[id number] Kidney Disease: Estimated GFR < 15 mL/min/1.73m2 Glucose 169(H) 60 - 115 mg/dL [facility] Calcium 9.5 8.4 - 10.2 mg/dL [facility] 08/21/2024 11:0 1 AM EDT 08/21/2024 2:04 PM EDT Marion Kim MD LAB BLOOD ORDERABLES Final Resul t Performing Organization Address [facility] Co de Phone Number [facility] [address] [place] [address] [phone] * CT Abdomen Pelvis w/o Contrast (08/12/2024 10:31 PM EDT) Anatomical Region Laterality Modality Body, Pelvis, Abdomen Computed T omography 08/12/2024 10:3 1 PM EDT Narrative 08/12/2024 10:32 PM EDT ? [facility] ?[address] ?[place] [address] ? CT Scan Report ? Signed ? Patient: White Mian,Dc J ?M ?? R#: [id number] ? : 1975 ?Acct:[id number] ? Age/Sex: 49 / M ?ADM Date: 08/12/24 ? Loc: HO.ED ? Attending Dr: ? Ordering Physician: Lm Cortes MD ?? Date of Service: 08/12/24 ?? Procedure(s): CT abdomen pelvis wo IV con ?? Accession Number(s): [id number] ? cc: Marion Kim MD; Lm Cortes MD ? Report Number: ?? [id number]: Total DLP = ??671.00 mGy-cm ? CLINICAL [...] signed by Elmer Liu MD in OV> ?08/12/24 2232 ? DD/ 2231 ? TD/TT: 08/12/241 ? Lightning Protection Installer: ? Procedure Note Bartolome, Image - 08/12/[address] [address] [address] Scan Report Signed Patient: Christopher Dc Papaps R#: [id number] : 1975Acct:[id number] Age/Sex: 49 / MADM Date: 08/12/24 Loc: HO.ED Attending Dr: Ordering Physician: Lm Cortes MD Date of Service: 08/12/24 Procedure(s): CT abdomen pelvis wo IV con Accession Number(s): [id number] cc: Marion Kim MD; Lm Cortes MD Report Number: [id number]: Total DLP = 671.00 mGy-cm CLINICAL HISTORY: [...] in OV> 08/12/242231 DD/ 30 TD/TT: 08/12/242230 Lightning Protection Installer: [facility] External Provider IMG CT PROCEDURES Edited Result - Final * (ABNORMAL) Urinalysis, Complete, with Reflex to Culture (08/12/2024 7:03 PM EDT) Color Urine Yellow [facility] Appearance Urine Clear [facility] PH 5.0 5.0 - 9.0 [facility] Glucose Urine UA >=1000(A) Negative mg/dL [facility] Urine Blood Small (1+)(A) Negative [facility] Specific [place] - Urine >=1.030(H) 1.005 - 1.025 [facility] Urine Protein Negative Neg-Trace mg/dL [facility] Urine Ketones 15 Negative mg/dL [facility] Nitrite Urine Negative Negative [facility] Leukocyte Esterase Urine Negative Negative [facility] RBC Urine 3-5(A) 0 - 2 /HPF [facility] Urine WBC 0-5 0 - 5 /HPF [facility] Urine Squamous Epithelial Cell 0-2 0 - 2 /HPF [facility] Urine Bacteria None Seen None Seen [facility] Hyaline Casts, Urine 0-2 0 - 2 /LPF [facility] 08/12/2024 7:03 PM EDT 08/12/2024 7:07 PM EDT Narrative [facility] - 08/12/2024 7:23 PM EDT [id number], Clean Catch us Generic External Data Provider LAB URINE ORDERAB LES Final Result [facility] [address] [place] [address] [phone] * (ABNORMAL) CBC auto differential (08/12/2024 7:00 PM EDT) White Blood Count 14.8(H) 4.8 - 10.8 X10*3/uL [facility] Red Blood Count 4.96 4.60 - 5.80 X10*6/uL [facility] Hemoglobin 14.9 14.0 - 18.0 g/dl [facility] Hematocrit 43.5 42.0 - 52.0 % [facility] Mean Corpuscular Volume 87.7 80.0 - 98.0 fL [facility] Mean Corpuscular Hemoglobin 30.0 27.0 - 33.0 pg [facility] Mean Corpuscular HGB Conc 34.3 31.0 - 36.0 g/dl [facility] Red Cell Distribution Width 11.9 11.0 - 16.0 % [facility] Platelet Count 373 160 - 400 X10*3/uL [facility] Mean Platelet Volume 9.4 9.4 - 12.4 fL [facility] Neutrophils Percent Auto 86.2(H) 45 - 73 % [facility] Imm Gran Pct Auto 0.4 0.0 - 0.4 % [facility] Lymphocytes Percent Auto 7.6(L) 20 - 40 % [facility] Monocytes Percent Auto 5.1 2 - 11 % [facility] Eosinophils Percent Auto 0.1 0 - 4 % [facility] Basophils Percent Auto 0.6 0 - 2 % [facility] NRBC Pct Auto 0.0 0.0 - 0.2 /100WBC [facility] Neutrophils Absolute Auto 12.7(H) 2.0 - 8.3 x10*3/uL [facility] Imm Gran Abs Auto 0.06(H) 0.00 - 0.03 X10*3/uL [facility] Lymphocytes Absolute Auto 1.1(L) 1.2 - 4.9 X10*3/uL [facility] Monocytes Absolute Auto 0.8 0.1 - 1.2 X10*3/uL [facility] Eosinophils Absolute Auto 0.0 0.0 - 0.4 X10*3/uL [facility] Basophils Absolute Auto 0.1 0.0 - 0.2 X10*3/uL [facility] NRBC Abs Auto 0.000 0.0 - 0.012 X10*3/uL [facility] 08/12/2024 7:00 PM EDT 08/12/2024 7:05 PM EDT us Generic External Data Provider LAB BLOOD ORDERAB LES Final Result [facility] [address] [place], [place] [phone] * (ABNORMAL) Comprehensive Metabolic Panel (08/12/2024 7:00 PM EDT) Sodium 137 135 - 145 mmol/L [facility] Potassium 5.6(H) 3.3 - 5.1 mmol/L [facility] Chloride 106 96 - 108 mmol/L [facility] Carbon Dioxide 22 22 - 29 mmol/L [facility] Anion Gap 15 12 - 20 [facility] Urea Nitrogen (BUN) 22(H) 9 - 16 mg/dL [facility] Creatinine, Serum 1.10 0.5 - 1.4 mg/dL [facility] Creatinine Clr Calc Pharmacy 103.3 [facility] Comment:eGFR (calculated fro m the MDRD study equation) and eCrCl(calculated from the Cockcroft-Gault equation) are based ondifferent parameters and may not yield comparable results.If eCrCl result is absurd, please check patient'sheight/weight. Estimated Glomerular Filt Rate >60 [facility] Comment:Chronic Kidney Disea se: Estimated GFR < 60 mL/min/1.65n6Xbmtbn Kidney Disease: Estimated GFR < 15 mL/min/1.73m2 Glucose 188(H) 60 - 115 mg/dL [facility] Calcium 9.2 8.4 - 10.2 mg/dL [facility] Bilirubin, Total 1.3(H) 0.0 - 1.0 mg/dL [facility] Aspartate Amino Transferase 23 5 - 37 U/L [facility] Alanine Aminotransferase 17 0 - 40 U/L [facility] Total Protein 7.8 6.5 - 8.0 g/dL [facility] Albumin Level 4.6 3.5 - 5.0 g/dL [facility] Alkaline Phosphatase 63 39 - 117 U/L [facility] 08/12/2024 7:00 PM EDT 08/12/2024 7:05 PM EDT us Generic External Data Provider LAB BLOOD ORDERAB LES Final Result [facility] [address] [place] [phone] * (ABNORMAL) POCT HGB A1C (08/06/2024 9:01 AM EDT) Only the most recent of2 resultswithin the time period is included. Hemoglobin A1C 11.9(A) 4.0 - 6.0 % QC Media Lot # [id number] Lot# Expiration Date Blood 08/06/2024 9:01 AM EDT us Marion Kim MD POINT OF CARE [...] AM EST) Hemoglobin A1c 12.1(H) <6.0 % [facility] Comment:Hemoglobin A1C Refer ence Range Adults: 4.8 - 6.0 % Non diabetic: < 6.0 % Goal: < 7.0 %Additional Action Suggested: > 8.0 %Note: Hemoglobin A1c results are invalid for patients with abnormal amounts of HbF. Blood transfusions may impact the HbA1c concentration in the patient sample. Estimated Average Glucose 301 mg/dL [facility] Comment:eAG = Estimated ave rage glucose which is %A1C expressed asaverage glucose, using the formula of the T3X-PbdbzrrAwpyeed Glucose study (ADAG), Diabetes Care, Vol.31,#8,Nov. 2007 Blood Venous blood specimen / Unknown 07/05/2024 8:55 AM EST 07/05/2024 2:12 PM EST us Marion Kim MD LAB BLOOD ORDERABLES Final Resul t [facility] [address] [place] [phone] * (ABNORMAL) Hepatic Function Panel (07/05/2024 8:55 AM EST) Bilirubin, Total 1.1(H) 0.0 - 1.0 mg/dL [facility] Bilirubin, Direct 0.3 0.0 - 0.5 mg/dL [facility] Aspartate Amino Transferase 23 5 - 37 U/L [facility] Alanine Aminotransferase 23 0 - 40 U/L [facility] Total Protein 7.5 6.5 - 8.0 g/dL [facility] Albumin Level 4.2 3.5 - 5.0 g/dL [facility] Alkaline Phosphatase 55 39 - 117 U/L [facility] Blood Venous blood specimen / Unknown 07/05/2024 8:55 AM EST 07/05/2024 2:12 PM EST us Marion Kim MD LAB BLOOD ORDERABLES Final Resul t [facility] [address] [place] [address] [phone] * (ABNORMAL) Lipid Panel, Standard (07/05/2024 8:55 AM EST) Triglycerides 239(H) <150 mg/dL [facility] Comment:Desirable Triglyceri de: less than 150 mg/dLBorderline High Triglyceride 150-199 mg/dLHigh Triglyceride: 200-499 mg/dLVery High Triglyceride: greater than or equal to 5OO mg/dL Cholesterol 201(H) <200 mg/dL [facility] Comment:Desirable Cholestero l: less than 200 mg/dLBorderline High Cholesterol: 200-239 mg/dLHigh Cholesterol: greater than 239 mg/dL LDL Cholesterol Calculated 118(H) <100 mg/dL [facility] Comment:Desirable LDL: less than 100 mg/dLNear Optimal/Above Optimal LDL: 110- 129 mg/dLBorderline High LDL: 130-159 mg/dLHigh LDL: 160-189 mg/dLVery High LDL: greater than or equal to 190 mg/dL HDL Cholesterol 36(L) >40 mg/dL [facility] Comment:Desirable HDL: great er than 40 mg/dL Note: This HDL assay may give artificially low results in patients with liver disease. Blood Venous blood specimen / Unknown 07/05/2024 8:55 AM EST 07/05/2024 2:12 PM EST us Marion Kim MD LAB BLOOD ORDERABLES Final Resul t [facility] [address] [place] [address] [phone] from Last 3 Months Insurance [employer] Care Teams Living Manager Relationship Specialty Start Date End Date Marion Kim MD [address] [place] [address] PCP - General Family Medicine 07/11/23 Emely Reyez PharmD [address] [place] [address] Pharmacist Internal Medicine 08/21/24
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
== END 2024-09-28 15:26 | disposition home or self-care (01) ==
LOC: HO.HUSH 13:58
PROVIDERS: PCP Student in an Organized Health Care Education/Training Program; Visit Provider Urology
DX: N20.0 Calculus of kidney (principal); E11.69 Type 2 diabetes mellitus with other specified complication; N52.1 Erectile dysfunction due to diseases classified elsewhere; Z13.9 Encounter for screening, unspecified
CPT/HCPCS: 99204

== ENCOUNTER → 2024-09-28 13:58 | Outpatient (BNVA) | payer MEDICAID, SELFPAY | PROVIDERS: PCP Student in an Organized Health Care Education/Training Program; Visit Provider Urology | DX: E11.69 Type 2 diabetes mellitus with other specified complication (principal); N20.0 Calculus of kidney; N52.1 Erectile dysfunction due to diseases classified elsewhere | CPT/HCPCS: 81003; 99202 ==

== ENCOUNTER 2025-01-21 10:28 | Outpatient (REF) | payer MEDICAID, SELFPAY ==
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
--- OUTSIDE RECORDS SUMMARY | 2025-01-21 12:46 | XMS_ITS | Encounter Summary ---
Author Organization [employer] Address [address] [place] [address] Care Team Providers Care Refractory Tile Helper Name Role Phone Marion Kim MD Primary Care Provider [phone] Emely Reyez PharmD Unavailable [phone] Encounter Details Date Type Department Care Team (Latest Contact Info) Description 01/21/2025 Travel Social History Tobacco Use Types Packs/Day [...] Care Team (Late st Contact Info) Description 02/18/2025 1:30 PM EDT Office Visit [facility] [address] [place], [place] [phone] Sukh, Shaunna, OD [address] [place] [address] 02/25/2025 10:00 AM EDT Medication Management [facility] [address] [place], [place] [phone] Emely Reyez PharmD [address] [place] [address] documented as of this encounter Visit Diagnoses Not on filedocumented in this encounter Additional Health Concerns Assessment Noted Time PHQ-9 Depression Total Score: 0 08/07/19 25 8:40 AM EDT documented as of this encounter Care Teams Refractory Tile Helper Relationship Specialty Start Date End Date Marion Kim MD [address] [place] [address] PCP - General Family Medicine 07/11/23 Emely Reeyz, PharmD [address], [place] [phone] Pharmacist Internal Medicine 08/21/24 documented as of this encounter
--- OUTSIDE RECORDS SUMMARY | 2025-01-21 12:46 | XMS_ITS | Clinical Summary ---
Author Organization [employer] Address [address] [place] [address] Care Team Providers Care Financial Operations Clerk Name Role Phone Marion Kim MD Primary Care Provider [phone] Emely Reyez PharmD Unavailable [phone] Allergies Active Allergy Reactions Criticality Noted Date [...] 24 Active Blood Glucose Monitoring Suppl (FreeStyle Parlin Lite) w/Device kit USE TO TEST BLOOD SUGAR TWICE DAILY 1 kit 08/15/19 24 Active aspirin 81 MG EC tablet Take 1 tablet (81 mg) by mouth Once per day. 30 tablet 07/05/19 25 026 Active senna (Senokot) 8.6 MG tablet TAKE TWO TABLETS EVERY NIGHT AT BEDTIME NEEDED FOR CONSTIPATION 04/10/20 24 Active triamcinolone (Kenalog) 0.1 % cream Apply topically if needed in the morning and at bedtime (pain and swelling). 30 g 2 08/07/19 25 Active lisinopril 5 MG tablet Take 1 tablet (5 mg) by mouth Once per day. 30 tablet 08/07/19 25 026 Active empagliflozin (Jardiance) 25 MG Take 1 tablet (25 mg) by mouth Once per day. 30 tablet 11 09/19/19 25 Active metFORMIN (Glucophage) 1000 MG tabletIndications: Uncontrolled type 2 diabetes mellitus with hyperglycemia, without long-term current use of insulin ([facility]) Take 1 tablet (1,000 mg) by mouth 2 times daily. 180 tablet 1 09/19/19 25 Active atorvastatin (Lipitor) 10 MG tabletIndications: Hyperlipidemia, unspecified hyperlipidemia type TAKE ONE TABLET EVERY NIGHT AT BEDTIME 90 tablet 10/26/19 25 Active Continuous Glucose Sensor (FreeStyle Britt 2 Sensor) [facility] USE DIRECTED AND CHANGE EVERY 14 DAYS 2 each 3 10/26/19 25 Active Trulicity 1.5 MG/0.5ML solution auto-injector INJECT ONE PEN (=1.5MG) SUBCUTANEOUSLY ONCE A WEEK DIRECTED 2 mL 2 11/20/19 25 Active potassium citrate CR (Urocit-K-10) 10 mEq ER tablet Take 2 tablets by mouth 2 times daily. 09/29/19 25 Active tadalafil (Cialis) 20 MG tablet TAKE 1 TABLET 1 HOUR BEFORE SEXUAL RELATIONS ONCE DAILY NEEDED. 09/29/19 25 Active tadalafil (Cialis) 5 MG tablet TAKE 1 TABLET BY MOUTH ONCE DAILY FOR SEXUAL ACTIVITY 09/29/19 25 Active Active Problems Problem Noted Date Diagnosed Date Hyperlipidemia 06/03/2023 Uncontrolled type 2 diabetes mellitus with hyperglycemia, without long-term current use of insulin 06/03/2023 Encounters Date Type Department Care Team Description 01/21/2025 Travel 12/13/2024 Telephone [facility] [address] [place] [address] Marion Kim MD Referral 11/29/2024 Results Follow-Up [facility] [address] [place] [address] Emely Reyez, Verito POCT A1C 11/29/2024 Travel 11/17/2024 Refill [facility] [address] [place] [address] Marion Kim MD 11/15/[address] [phone] Marion Kim MD 10/24/2024 Refill [facility] [address] [place] [address] Marion Kim MD Hyperlipidemia, unspecified hyperlipidemia type from Last 3 Months Immunizations Immunization Administration Dates Next Due Hep B, adult 09/18/2024,08/21/2024 Influenza, seasonal, injectable, preservative fr ee 01/21/2025 Pneumococcal Conjugate PCV 20 08/21/2024 Tdap 09/07/2023 [...] Sign Reading Time Taken Comments Blood Pressure 142/84 11/29/2024 9:54 AM EDT Pulse 83 11/29/2024 9:54 AM EDT Temperature 36.7 C (98 F) 08/06/2024 8:39 AM EDT Respiratory Rate 20 [...] Description 02/18/2025 1:30 PM EDT Office Visit [facility] [address] [place] [address] SukhShaunna sloan, OD [address] [place] [address] 02/25/2025 10:00 AM EDT Medication Management [facility] [address] [place] [address] Emely Reyez, PharmD [address] [place] [address] Health Maintenance Due Date Last Done Comments CT Colonography 1973 Colonoscopy 1973 Colorectal Cancer Screening 1973 FIT DNA/Cologuard 1973 FIT 1973 FOBT 1973 HIV Screening 1973 Sigmoidoscopy 1973 Disability Screening 1973 Family Planning (PISQ) 01/15/1988 Hepatitis C Screening 1991 Zoster Vaccines (1 of 2) 2023 SDOH Screening 06/29/2024 06/30/2023 Diabetes: Foot Exam 09/06/2024 09/07/2023, 09/07/2023, 09/07/2023, Additional history exists Tobacco Screening 11/09/2024 11/10/2023 COVID-19 Vaccine ( season) 2024 Hepatitis B Vaccines (3 of 3 - 19+ 3-dose series) 02/20/2025 09/18/2024, 08/21/2024 Diabetes: Hemoglobin A1C 03/01/2025 025, 08/06/2024, 07/05/2024, Additional history exists Lipid Panel 07/05/2025 07/05/2024, 06/02/2023 Alcohol/Substance Use Screening 08/06/2025 08/06/2024 Depression Screening 08/06/2025 08/06/2024, 08/07/19 Diabetes: Urine Protein Screening 08/21/2025 08/21/2024, 06/02/2023 Eye Exam 08/29/2025 08/30/2023, 08/02, 08/30/2023, Additional history exists DTaP/Tdap/Td Vaccines (2 - Td or Tdap) 09/06/2033 09/07/2023 RSV Patients and Patients Aged 60 years or older (1 - 1-dose 75+ series) 01/15/2048 Pneumococcal Vaccine: 50+ Years Completed 08/21/2024 Influenza Vaccine Completed 01/21/2025 HIB Vaccines Aged Out No longer eligi [...] Diagnosis Comments POCT GLYCATED HEMOGLOBIN, TOTAL Routine 11/29/2024 9:56 AM EDT Uncontrolled type 2 diabetes mellitus with hyperglycemia, without long-term current use of insulin ([facility]) ALBUMIN, RANDOM URINE W/CREATININE Routine 08/21/2024 11:05 AM EDT LIPID PANEL, STANDARD Routine 07/05/2024 8:55 AM EST Uncontrolled type 2 diabetes mellitus with hyperglycemia, without long-term current use of insulin ([facility]) Hyperlipidemia, unspecified hyperlipidemia type from Last 3 Months or Most Recently Relevant to Health Maintenance Results * (ABNORMAL) POCT A1C (11/29/2024 9:56 AM EDT) Hemoglobin A1C 7.6(A) 4.0 - 5.7 % QC Media Lot # [id number] Lot# Expiration Date Blood 11/29/2024 9:56 AM EDT Marion Kim MD POINT OF CARE TEST ENTER/EDIT OR DERABLES Final Result * Albumin, Random Urine W/Creatinine (08/21/2024 11:05 AM EDT) Creatinine, Urine 83.77 mg/dL [facility] Microalbumin Urine 13.0 mg/L [facility] Microalbum Creatinine Ratio Ur 15.5 <30 ug/mg cr [facility] Comment:Albumin/Creatinine R atio Reference Ranges: Normal: < 30 ug/mg creatinine Microalbuminuria: 30 - 300 ug/mg creatinineClinical Albuminuria: > 300 ug/mg creatinine 08/21/2024 11:0 5 AM EDT 08/21/2024 2:04 PM EDT Marion Kim MD LAB URINE ORDERABLES Final Resul t [facility] [address] [place] [address] [phone] * (ABNORMAL) Lipid Panel, Standard (07/05/2024 8:55 AM EST) Triglycerides 239(H) <150 mg/dL [facility] Comment:Desirable Triglyceri de: less than 150 mg/dLBorderline High Triglyceride 150-199 mg/dLHigh Triglyceride: 200-499 mg/dLVery High Triglyceride: greater than or equal to 5OO mg/dL Cholesterol 201(H) <200 mg/dL [facility] Comment:Desirable Cholestero l: less than 200 mg/dLBorderline High Cholesterol: 200-239 mg/dLHigh Cholesterol: greater than 239 mg/dL LDL Cholesterol Calculated 118(H) <100 mg/dL [facility] Comment:Desirable LDL: less than 100 mg/dLNear Optimal/Above Optimal LDL: 110- 129 mg/dLBorderline High LDL: 130-159 mg/dLHigh LDL: 160-189 mg/dLVery High LDL: greater than or equal to 190 mg/dL HDL Cholesterol 36(L) >40 mg/dL [facility] Comment:Desirable HDL: great er than 40 mg/dL Note: This HDL assay may give artificially low results in patients with liver disease. Blood Venous blood specimen / Unknown 07/05/2024 8:55 AM EST 07/05/2024 2:12 PM EST us Marion Kim MD LAB BLOOD ORDERABLES Final Resul t [facility] [address] [place] [phone] from Last 3 Months or Most Recently Relevant to Health Maintenance [place] [address] [place] [address] C3 Care Teams Financial Operations Clerk Relationship Specialty Start Date End Date Marion Kim MD [address] [place] [address] PCP - General Family Medicine 07/11/23 Emely Reyez, AminaD [address] [place] [address] Pharmacist Internal Medicine 08/21/24
[2025-01-21 14:38] LABS: Cholesterol 150 mg/dL (<200); HDL Cholesterol 38 mg/dL (>40); Triglycerides 137 mg/dL (<150)
[2025-01-21 15:00] LABS: Vitamin B12 515 pg/mL (200-900)
== END 2025-01-21 10:29 | disposition home or self-care (01) ==
LOC: HO.CHCLDS 10:28
PROVIDERS: Visit Provider Student in an Organized Health Care Education/Training Program
DX: E11.65 Type 2 diabetes mellitus with hyperglycemia (principal)
CPT/HCPCS: 36415; 80061; 82607

== ENCOUNTER 2025-03-21 11:55 | Outpatient (REF) | payer MEDICAID, SELFPAY ==
--- NOTE | ~2025-03-21 | US_ITS ---
CLINICAL HISTORY: N20.0 - Calculus of kidney US Renal Comparison: None provided Findings: Right kidney normal size and echotexture measuring 13.3 cm x 6.6 cm x 6.8 cm. Left kidney normal size and echotexture measuring 14 cm x 6.6 cm x 4.9 cm. No definite renal calculi are identified. No hydronephrosis of either kidney. Normal color Doppler IMPRESSION: 1. Normal kidneys. This document has been electronically signed by: Flora Pike MD on 03/21/2025 18:35:47
== END 2025-03-21 11:56 | disposition home or self-care (01) ==
LOC: HO.US 11:55
PROVIDERS: PCP Student in an Organized Health Care Education/Training Program; Visit Provider Urology
DX: N20.0 Calculus of kidney (principal)
CPT/HCPCS: 76775

== ENCOUNTER → 2025-03-21 11:57 | Outpatient (BNV) | payer MEDICAID, SELFPAY | PROVIDERS: PCP Student in an Organized Health Care Education/Training Program; Visit Provider Specialist | DX: N20.0 Calculus of kidney (principal) | CPT/HCPCS: 76775 ==